=== PATIENT | male | born 1945 | race Caucasian/White ===

== ENCOUNTER 2020-04-18 06:18 | Emergency (ER) | payer MEDICARE, SELFPAY ==
--- NOTE | ~2020-04-18 | CT_ITS ---
EXAMINATION: CT abdomen pelvis w con DATE: 04/18/2020 07:01 INDICATION: Right upper quadrant abdominal pain and fever. TECHNIQUE: Computed tomography (CT) of the abdomen and pelvis was performed with 100 mL Omnipaque-350 intravenous contrast. Automated exposure control and iterative reconstruction technique were employe d. The dose-length product was 1106.54 mGy-cm. COMPARISON: None FINDINGS: Emphysema and mild atelectasis at the bilateral lung bases. Heart size is normal. Atherosclerotic cor onary artery calcifications. No pericardial or pleural effusion. Gallbladder is mildly dilated with m ild wall thickening and pericholecystic inflammatory stranding consistent with acute cholecystitis. S uggestion of possible obstructing gallstone at the proximal cystic duct. Liver, spleen, pancreas, damari ateral adrenal glands are normal. There are bilateral small low-attenuation parenchymal and parapelvi c cysts at both kidneys. There is a larger 2.2 cm high attenuation lesion in the upper pole of the ri ght kidney which could represent either a proteinaceous/hemorrhagic cyst or solid enhancing neoplasm. There is prominent diverticulosis along the descending and sigmoid colon without adjacent inflammato ry change to suggest diverticulitis. Small bowel and appendix are normal. Partially decompressed blad misti is unremarkable. Prostatic calcifications. No free intraperitoneal gas or fluid. No pathologicall y enlarged abdominal or pelvic lymphadenopathy. Severe lumbar spondylosis. IMPRESSION: 1. Acute cholecystitis with possible obstructing gallstone at the cystic duct. 2. 2.2 cm indeterminate lesion at the upper pole of the right kidney which could represent either a p roteinaceous/hemorrhagic cyst or solid enhancing neoplasm. Recommend further evaluation with follow-u p pre and postcontrast MRI or CT. Reviewed, dictated and finalized at location A. IMPRESSION: 1. Acute cholecystitis with possible obstructing gallstone at the cystic duct. 2. 2.2 cm indeterminate lesion at the upper pole of the right kidney which coul d represent either a proteinaceous/hemorrhagic cyst or solid enhancing neoplasm . Recommend further evaluation with follow-up pre and postcontrast MRI or CT.
[2020-04-18 06:22] VITALS: BP 116/61; PULSE 100; RESP 19; TEMP 37.1; O2SAT 100
--- NOTE | 2020-04-18 06:32 | ED.ABDPAIN ---
HPI - Abdominal Pain General Chief Complaint: Abdominal Pain <Garret Rudolph MD - Last Filed: 04/19/20 00:58> Stated Complaint: abdominal pain and bloating <Garret Rudolph MD - Last Filed: 04/19/20 00:58> Time Seen by Provider: 04/18/20 06:24 <Garret Rudolph MD - Last Filed: 04/19/20 00:58> History of Present Illness HPI narrative: Abdominal pain since Thursday. Started in he RLQ during a walk. Later that day spread throughout the abdomen. Yesterday the pain moved to the RUQ and he began having fevers up to 101. This was also associated with loss of appetite and bloating. He reports that he has not had a bowel movement since Thursday. He tried tea and lemon-aid without relief. <Garret Rudolph MD - Last Filed: 04/19/20 00:58> Related Data Home Medications: Home Medications Medication Instructions Recorded Confirmed amlodipine 04/18/20 aspirin [Aspir-81] 04/18/20 hydrochlorothiazide 04/18/20 losartan 04/18/20 metoprolol tartrate 04/18/20 simvastatin mg 04/18/20 <Garret Rudolph MD - Last Filed: 04/19/20 00:58> Allergies/Adverse Reactions: Allergies Allergy/AdvReac Type Severity Reaction Status Date / Time Sulfa (Sulfonamide Allergy Intermediate Nausea and Verified 04/18/20 06:27 Antibiotics) Vomiting codeine AdvReac Intermediate Nausea and Verified 04/18/20 06:27 Vomiting MEPERIDINE HCL Allergy Intermediate Nausea and Uncoded 04/18/20 06:27 Vomiting <Garret Rudolph MD - Last Filed: 04/19/20 00:58> Review of Systems Review of Systems: All systems reviewed & are unremarkable except as noted in HPI and below <Garret Rudolph MD - Last Filed: 04/19/20 00:58> Constitutional: Constitutional: Reports fever(s) and Denies weakness <Garret Rudolph MD - Last Filed: 04/19/20 00:58> Cardiovascular: Cardiovascular: Denies chest pain <Garret Rudolph MD - Last Filed: 04/19/20 00:58> Respiratory: Respiratory: Denies dyspnea <Garret Rudolph MD - Last Filed: 04/19/20 00:58> Gastrointestinal: Gastrointestinal: Reports abdominal pain, Reports constipation, Denies diarrhea, Reports nausea and Denies vomiting <Garret Rudolph MD - Last Filed: 04/19/20 00:58> Genitourinary: Genitourinary: Denies hematuria, Denies oliguria and Denies dysuria <Garret Rudolph MD - Last Filed: 04/19/20 00:58> Musculoskeletal: Musculoskeletal: Denies back pain <Garret Rudolph MD - Last Filed: 04/19/20 00:58> Neurologic: Denies numbness and Denies weakness <Garret Rudolph MD - Last Filed: 04/19/20 00:58> PMF Past Medical History Medical History: Medical History (Updated 04/19/20 @ 00:00 by Eulogio Mahmood) HTN (hypertension) Hyperlipidemia <Garret Rudolph MD - Last Filed: 04/19/20 00:58> Surgical History Surgical History: Surgical History (Updated 04/18/20 @ 16:04 by Tameka Alves) History of knee surgery 4x bilateral History of uvulopalatopharyngoplasty <Garret Rudolph MD - Last Filed: 04/19/20 00:58> Family History Family History: Family History (Updated 04/18/20 @ 16:04 by Tameka Alves) Unknown Heart disease Cancer <Garret Rudolph MD - Last Filed: 04/19/20 00:58> Social History Social History: Social History (Updated 04/18/20 @ 16:04 by Tmaeka Alves) Smoking packs per day: 1 Smoking cigarettes per day: 20.0 Years smoked: 20 Smoking pack-years: 20.00 Smoking status: Former smoker Alcohol intake: current Living arrangements: with family Occupation/Education: occupation Additional occupation/education comments: sales Gender identity (if verbalized by the patient): Male <Garret Rudolph MD - Last Filed: 04/19/20 00:58> Exam Const: General: healthy appearing, no acute distress and alert <Garret Rudolph MD - Last Filed: 04/19/20 00:58> Nutritional Appearance: obese <Garret Rudolph MD - Last Filed
[2020-04-18 06:34] LABS: Basophils Absolute Auto 0.1 K/mm3 (0.0-0.1); Basophils Percent Auto 0.3 % (0.2-1.2); Eosinophils Percent Auto 0.2 % (0-4.4); Hematocrit 46.8 % (42.0-52.0); Hemoglobin 15.4 g/dL (14.0-18.0); Immature Granulocyte Percent A 0.6 % (0-0.5); Lymphocytes Absolute Auto 1.07 K/mm3 (0.9-3.2); Mean Corpuscular HGB Conc 32.9 g/dl (32-36); Mean Corpuscular Hemoglobin 30.9 pg (26-34); Mean Corpuscular Volume 93.8 fl (80-100); Mean Platelet Volume 8.9 fl (7.4-10.4); Monocytes Percent Auto 11.1 % (2.6-8.5); Neutrophils Absolute Auto 14.7 K/mm3 (1.3-6.7); Neutrophils Percent Auto 81.8 % (45.5-73.1); Platelet Count Result 232 k/mm3 (150-375); Red Blood Count 4.99 M/mm3 (4.6-6.20); Red Cell Distribution Width 13.2 % (11.5-14.5); White Blood Count 17.9 K/mm3 (4.5-10.0)
[2020-04-18 06:44] LABS: Alanine Aminotransferase 22 U/L (4-50); Alkaline Phosphatase 66 U/L (38-126); Anion Gap 9 mmol/L (8-16); Aspartate Amino Transferase 23 U/L (17-59); Bilirubin,Total 1.3 mg/dL (0.2-1.3); Blood Urea Nitrogen 14 mg/dL (9-20); Calcium 8.8 mg/dL (8.4-10.2); Carbon Dioxide 27 mmol/L (22-30); Chloride 98 mmol/L (98-107); Estimated CRCL calculation 79 ml/min; Estimated Glomerular Filt Rate > 60; Glucose 120 mg/dL (75-110); Lipase 25 U/L (23-300); Potassium 3.5 mmol/L (3.4-5.0); Sodium 134 mmol/L (137-145)
[2020-04-18 06:53] LABS: Add Urine Microscopic? YES; Appearance Urine Clear (Clear); Bacteria Urine Trace /hpf; Bilirubin Urine Negative (Negative); Blood Urine 1+ (Negative); Color Urine Yellow (Yellow); Glucose Urine UA Negative (Negative); Ketones Urine Negative (Negative); Leukocyte Esterase Ur Negative LEU/UL (Negative); Mucus Urine Few /lpf; Nitrate Urine Negative (Negative); Protein Urine 1+ mg/dL (Negative); RBC Urine 0-2 /hpf (0-2); Specific Grav Ur 1.015 (1.001-1.035); Squamous Epithelial Cell Urine Occasional /hpf (Few); Urobilinogen Urine Negative mg/dL (<2.0); WBC Urine 0-3 /hpf
--- NOTE | 2020-04-18 07:11 | PC.NURSE ---
Assumed care of pt, pt is alert and upright on stretcher - returning from CT scan, at bedside, discussed POC. No requests at this time.
[2020-04-18 08:05] VITALS: BP 122/69; PULSE 88; RESP 18; O2SAT 96
[2020-04-18] MEDS: CIPROFLOXACIN 500 MG TAB PO (08:27)
[2020-04-18 08:32] VITALS: BP 122/69; PULSE 88; RESP 18; O2SAT 96
== END 2020-04-18 08:33 | disposition home or self-care (01) ==
PROVIDERS: Emergency Medicine; Emergency Provider Emergency Medicine; PCP Internal Medicine
DX: K81.9 Cholecystitis, unspecified (principal); I10 Essential (primary) hypertension; E78.5 Hyperlipidemia, unspecified
CPT/HCPCS: 36415; 74177; 80053; 81001; 83690; 85025; 99284; A9270; Q9967

== ENCOUNTER 2020-05-03 07:37 | Outpatient (CLI) | payer MEDICARE, SELFPAY ==
--- NOTE | ~2020-05-03 | US_ITS ---
EXAMINATION: US abdomen limited DATE: 05/03/2020 08:24 INDICATION: Right upper quadrant abdominal pain. Acute cholecystitis. TECHNIQUE: Multiple grayscale and Doppler ultrasound images of the abdomen were obtained. COMPARISON: CT abdomen and pelvis 04/18/2020 FINDINGS: The visualized portions of the head, body, and tail of the pancreas are normal. The liver i s normal without focal lesion. The gallbladder is normal in size and contains gallstones. Gallbladder wall thickening is noted. There was no sonographic Arthur sign. The common duct is normal and measur es 4 mm. IMPRESSION: 1. Cholelithiasis. Gallbladder wall thickening is likely from acute or chronic cholecystitis. Reviewed, dictated and finalized at location B.
--- NOTE | ~2020-05-03 | NM_ITS ---
EXAMINATION: NM hepatobiliary wo pharm DATE: 05/03/2020 12:06 INDICATION: Acute cholecystitis. Abnormal findings on diagnostic imaging of liver and bile ducts. COMPARISON: CT abdomen and pelvis 04/18/2020 TECHNIQUE: 5.2 mCi Tc-99m mebrofenin (Choletec) was administered intravenously. Scintigraphic images of the abdomen were obtained for one hour. Delayed images were obtained at 4 hours. FINDINGS: There is normal clearance of radiotracer from the blood pool. There is homogeneous tracer u ptake by the liver. Activity progresses to the bowel. There is no activity in the gallbladder at 4 h ours. IMPRESSION: 1. Acute cholecystitis. Reviewed, dictated and finalized at location B. IMPRESSION: 1. Acute cholecystitis.
== END 2020-05-03 07:38 | disposition home or self-care (01) ==
PROVIDERS: Visit Provider Surgery
DX: R93.2 Abnormal findings on diagnostic imaging of liver and biliary tract (principal); K81.0 Acute cholecystitis; K80.20 Calculus of gallbladder without cholecystitis without obstruction
CPT/HCPCS: 76705; 78226; A9537

== ENCOUNTER 2020-05-04 08:52 | Outpatient (CLI) | payer MEDICARE, SELFPAY ==
--- NOTE | ~2020-05-04 | MR_ITS ---
EXAMINATION: MR abdomen wo/w con DATE: 05/04/2020 10:10 INDICATION: Right kidney mass. TECHNIQUE: Magnetic resonance imaging (MRI) of the abdomen was performed without and with 18 mL Multi Samara intravenous contrast. Sequences included coronal T2-weighted FS FSE, coronal and axial FIESTA F S, coronal LAVA-flex, axial LAVA, axial T2-weighted FSE, axial T1-weighted dual-echo FSPGR, axial STI R FSE, and axial DWI. Postcontrast sequences included coronal LAVA-flex and a time course of axial LA VA. COMPARISON: CT abdomen and pelvis 04/18/2020, hepatobiliary scintigraphy 05/03/2020 FINDINGS: The liver, spleen, pancreas, and adrenal glands are normal. There are gallstones in the gallbladder, which is normal in size. There is a stone in the cystic duct. Gallbladder wall thickening is noted, c onsistent with acute cholecystitis. There are hemorrhagic cysts in the kidneys measuring up to 2.5 cm on the right. There are simple cysts in left kidney measuring up to 1.7 cm. There are no dilated loo ps of bowel. There are no pathologically enlarged lymph nodes. There is no free intraperitoneal fluid . IMPRESSION: 1. Benign cysts in the kidneys. 2. Acute cholecystitis. Reviewed, dictated and finalized at location B.
[2020-05-04 09:29] LABS: Estimated Glomerular Filt Rate > 60
== END 2020-05-04 08:53 | disposition home or self-care (01) ==
PROVIDERS: Visit Provider Physician Assistant
DX: N28.1 Cyst of kidney, acquired (principal); K81.0 Acute cholecystitis
CPT/HCPCS: 74183; A9577

== ENCOUNTER 2020-05-06 07:22 | Inpatient (IN) | payer MEDICARE, SELFPAY ==
[2020-05-06] VITALS (11 sets, daily range): BP systolic 109–145; BP diastolic 62–71; PULSE 88–109; RESP 14–23; TEMP 36.4–38.1; O2SAT 95–99; BMI 30.2
--- NOTE | ~2020-05-06 | CT_ITS ---
EXAMINATION: CT abdomen pelvis w con DATE: 05/06/2020 09:29 INDICATION: Cholecystitis. Fever. TECHNIQUE: Computed tomography (CT) of the abdomen and pelvis was performed with 100 mL Omnipaque-350 intravenous contrast. Automated exposure control and iterative reconstruction technique were employe d. The dose-length product was 996.05 mGy-cm. COMPARISON: Abdomen MRI dated 05/04/2020 FINDINGS: Mild emphysema and unchanged pattern of linear discoid atelectasis/scarring at the bilateral mid to l ower lungs. Heart size is normal. No pericardial or pleural effusion. Atherosclerotic coronary artery calcification. Again seen is mild edematous wall thickening of the gallbladder with multiple gallsto mansi evident on the prior MRI consistent with acute cholecystitis. Liver, spleen, pancreas and bilater al adrenal glands are normal. Again seen are bilateral renal cysts including a 2.5 cm hyperdense hemo rrhagic cyst at the upper pole of the right kidney which is without contrast enhancement on prior MRI . There is extensive diverticulosis throughout the colon without adjacent inflammatory change to sugg est diverticulitis. Small bowel is normal. Normal tiny appendix. Mild diffuse bladder wall thickening which may be related to chronic outlet obstruction from the enlarged prostate. No free intraperitone al gas or fluid. No pathologically enlarged abdominal or pelvic lymphadenopathy. Mild lumbar dextrocu rvature with severe spondylosis. IMPRESSION: 1. Acute cholecystitis. 2. Extensive diverticulosis. 3. Mild bladder wall thickening which may be related to chronic outlet obstruction from the enlarged prostate. Reviewed, dictated and finalized at location A. IMPRESSION: 1. Acute cholecystitis. 2. Extensive diverticulosis. 3. Mild bladder wall thickening which may be related to chronic outlet obstruct ion from the enlarged prostate.
--- NOTE | ~2020-05-06 | XR_ITS ---
EXAMINATION: XR chest 2V DATE: 05/06/2020 08:04 INDICATION: Fever. Body chills. TECHNIQUE: frontal and lateral views of the chest were obtained. COMPARISON: CT abdomen and pelvis dated 04/18/2020. FINDINGS: Predominantly linear opacities in the left mid to lower and right lower lung zones. Increased lucency and architectural distortion at the upper lung zones consistent with emphysema. No pleural effusion or pneumothorax. The cardiomediastinal silhouette is normal. Atherosclerotic aorta. Mild thoracic dex trocurvature with mild thoracic and moderate lumbar spondylosis. IMPRESSION: 1. Mild opacities at the left mid to lower and right lower lung zones which appears similar in locati on and configuration to earlier discoid atelectasis/scarring seen on prior CT. Reviewed, dictated and finalized at location A. IMPRESSION: 1. Mild opacities at the left mid to lower and right lower lung zones which xavier ears similar in location and configuration to earlier discoid atelectasis/scarr ing seen on prior CT.
--- NOTE | 2020-05-06 07:32 | ED.FEVER ---
HPI - Fever General Chief Complaint: Fever Stated Complaint: fever/UTI? Time Seen by Provider: 05/06/20 07:31 Source: patient Mode of arrival: ambulatory Limitations: no limitations History of Present Illness HPI Narrative: Patient is a 75-year-old male with a history of hypertension who presents for evaluation of recurrent fever. Patient reports fever of maximum temperature 103 Fahrenheit over the past 24 hours. Patient states he has myalgias, does not feel well generally, but denies any headache pain, chest pain, cough, or abdominal pain. Patient was seen here approximately 2 weeks ago and diagnosed with acute cholecystitis, completed a at home course of oral ciprofloxacin and followed up with Dr. Lowe in office, is currently in work-up to get HIDA scan, additional imaging for this. Patient is denying any abdominal pain, nausea or vomiting. No diarrhea. He does report some dysuria. Patient finished his course of ciprofloxacin 4 days ago. He had COVID testing yesterday which was negative. No recent sick contacts. Related Data Home Medications Medication Instructions Recorded Confirmed amlodipine 04/18/20 aspirin [Aspir-81] 04/18/20 hydrochlorothiazide 04/18/20 losartan 04/18/20 metoprolol tartrate 04/18/20 simvastatin mg 04/18/20 Allergies Allergy/AdvReac Type Severity Reaction Status Date / Time Sulfa (Sulfonamide Allergy Intermediate Nausea and Verified 05/06/20 09:00 Antibiotics) Vomiting codeine AdvReac Intermediate Nausea and Verified 05/06/20 09:00 Vomiting MEPERIDINE HCL Allergy Intermediate Nausea and Uncoded 04/18/20 06:27 Vomiting Review of Systems Review of Systems: Narrative: CONSTITUTIONAL: Reports fever and chills EYES: Denies visual changes, redness, or discharge. ENT: Reports rhinorrhea, congestion, denies sore throat CARDIOVASCULAR: Denies chest pain, palpitations, or edema. RESPIRATORY: Denies cough or dyspnea. GASTROINTESTINAL: Denies abdominal pain, nausea, vomiting, or diarrhea. GENITOURINARY: Reports dysuria, denies hematuria, denies flank pain SKIN: Denies rash or itching. MUSCULOSKELETAL: Denies back pain, joint pain, reports myalgias NEUROLOGIC: Denies headache, numbness, or weakness. [facility] Past Medical History Medical History HTN (hypertension) Hyperlipidemia Surgical History Surgical History History of knee surgery 4x bilateral History of uvulopalatopharyngoplasty Social History Social History Smoking packs per day: 1 Smoking cigarettes per day: 20.0 Years smoked: 20 Smoking pack-years: 20.00 Smoking status: Former smoker Alcohol intake: current Additional occupation/education comments: sales Gender identity (if verbalized by the patient): Male Exam Narrative: Exam Narrative: GENERAL: Awake, alert, conversant HEAD: Normocephalic, atraumatic. EYES: PERRLA and EOMI. ENT: Nares clear, no rhinorrhea or epistaxis. Mucous membranes moist. NECK: Supple. CHEST: No respiratory distress, breathing even and non labored HEART: Tachycardic rate, sinus rhythm ABDOMEN:Non distended, non tender, no focal right upper quadrant tenderness or epigastric tenderness EXTREMITIES: Normal range of motion. No edema. SKIN: Warm, dry, no rash. NEURO:No focal deficits. Alert and oriented x3 Course Vital Signs Vital signs: Vital Signs Temperature 37.7 C H 05/06/20 07:25 Pulse Rate 105 H 05/06/20 07:25 Respiratory Rate 16 05/06/20 07:25 Blood Pressure 116/67 05/06/20 07:25 Pulse Oximetry 96 05/06/20 07:25 Temperature 37.2 C 05/06/20 10:06 Pulse Rate 92 05/06/20 08:29 Respiratory Rate 21 H 05/06/20 08:29 Blood Pressure 121/68 05/06/20 08:29 Pulse Oximetry 95 05/06/20 08:29 MDM - Fever MDM Narrative Medical decision making narrative: Patient prese
[2020-05-06 07:55] LABS: Hematocrit 42.3 % (42.0-52.0); Hemoglobin 14.1 g/dL (14.0-18.0); Mean Corpuscular HGB Conc 33.3 g/dl (32-36); Mean Corpuscular Hemoglobin 31.1 pg (26-34); Mean Corpuscular Volume 93.2 fl (80-100); Mean Platelet Volume 8.9 fl (7.4-10.4); Platelet Count Result 218 k/mm3 (150-375); Red Blood Count 4.54 M/mm3 (4.6-6.20); Red Cell Distribution Width 13.4 % (11.5-14.5); White Blood Count 15.9 K/mm3 (4.5-10.0)
[2020-05-06] MEDS: ACETAMINOPHEN 500 MG TABLET 1000 MG PO (08:11)
[2020-05-06 08:15] LABS: Band Neutrophils Percent 1 % (0-6); Lymphocytes Absolute Manual 0.63 K/mm3 (1.1-4.5); Monocytes Absolute Manual 0.47 K/mm3 (0.1-0.90); Monocytes Percent Manual 3 % (3-9); Neutrophils Absolute Manual 14.78 K/mm3 (1.3-6.7); Neutrophils Percent Manual 92 % (46-73); Platelet Estimate Adequate (Adequate); Total Cells Counted 100
[2020-05-06] MEDS: SODIUM CHLORIDE 0.9% IV 2,800 ML/1,000 ML BAG 999 ML IV CONT ×3 (08:15→10:06)
[2020-05-06 08:23] LABS: Lactic Acid Reflex 1.2 mmol/L (0.7-2.1)
[2020-05-06 08:37] LABS: Alanine Aminotransferase 30 U/L (4-50); Albumin Level 3.6 g/dL (3.5-5.1); Alkaline Phosphatase 81 U/L (38-126); Anion Gap 8 mmol/L (8-16); Aspartate Amino Transferase 23 U/L (17-59); Bilirubin,Total 0.9 mg/dL (0.2-1.3); Blood Urea Nitrogen 19 mg/dL (9-20); CRP 12.2 mg/dL (<1.0); Calcium 8.5 mg/dL (8.4-10.2); Carbon Dioxide 26 mmol/L (22-30); Chloride 100 mmol/L (98-107); Estimated CRCL calculation 81 ml/min; Estimated Glomerular Filt Rate > 60; Glucose 157 mg/dL (75-110); Lipase 34 U/L (23-300); Potassium 3.8 mmol/L (3.4-5.0); Sodium 134 mmol/L (137-145)
--- NOTE | 2020-05-06 09:05 | PC.NURSE ---
Patient unable to provide urine sample, says I should be able to soon. Currently refusing straight cath. IV fluids actively running.
[2020-05-06 10:01] LABS: Add Urine Microscopic? YES; Appearance Urine Cloudy (Clear); Bacteria Urine 4+ /hpf; Bilirubin Urine Negative (Negative); Blood Urine Negative (Negative); Color Urine Yellow (Yellow); Glucose Urine UA Negative (Negative); Ketones Urine Negative (Negative); Leukocyte Esterase Ur 2+ LEU/UL (Negative); Mucus Urine Heavy /lpf; Nitrate Urine Positive (Negative); Protein Urine 1+ mg/dL (Negative); Specific Grav Ur 1.016 (1.001-1.035); Urobilinogen Urine Negative mg/dL (<2.0); WBC Urine 51-75 /hpf
[2020-05-06] MEDS: ONDANSETRON INJ 4 MG/2 ML VIAL IV PUSH ×3 (10:25→18:45)
--- NOTE | 2020-05-06 12:33 | PC.NURSE ---
This patient, Baltazar Cox, was admitted to 3 [facility] Surg Room 302-01. Patient/family oriented to hospital policies and general routines including ID bracelet, bed and alarms, visiting hours, pain management, procedures, bathroom and other care routines, personal items, smoking policy, room service/diet, and visiting hours. Valuables list has been completed. Information on how to activate the Rapid Response Team has been discussed. Patient/Family are encouraged to report perceived risks to care and to ask questions if they do not understand what they are told or what they should do.
--- NOTE | 2020-05-06 16:14 | PM.IMHP ---
H&P: HPI History of Present Illness Date/Time: 05/06/20 16:14 Chief complaint: Sepsis, UTI, Acute cholecystitis Narrative: Baltazar Cox is a 75 year old maleWho has a history of a dysfunctional gallbladder and gallstones. Patient stated that he had a fever about 1 week ago and was on ciprofloxacin. The patient stated that he completed the course. His was concerned because he had a T-max of 104.1?. So she took him to get a COVID test which was found to be negative. The patient had been seen in the emergency room on 04/18/2020 with abdominal pain. Had a fever 101 at that time. He had some bloating and poor appetite. Dr. pa had been notified at that time and the patient was started on Cipro at that time. The patient had a follow-up visit with Dr. pa on 04/24/2020. The patient stated that he was feeling better at that time. Today the patient came in with complaints of fever again. His temperature was 103? today. He was nauseated. Patient was scheduled for a HIDA scan but just did not make it to the scheduled appointment. His COVID test came back negative from yesterday. The patient was found to have UTI. Chest x-ray was read per Radiology as mild pace to the left mid to lower lobe and right lower lung zones which appears to be similar in location and configuration to early discoid atelectasis versus scarring. Abdominal pelvis CT was read as acute cholecystitis. Extensive diverticulosis. Mild bladder wall thickening which may be related to chronic outlet obstruction from the enlarged prostate. Patient was started on Rocephin in the emergency room. He received [address] Veronica was on-call for the surgical team today. The patient was started on IV fluids and given Tylenol and Zofran in the emergency. Date of service 05/06/2020 Review of Systems Review of Systems: All systems reviewed & are unremarkable except as noted in HPI and below Constitutional: Constitutional: Reports as per HPI and Reports no additional constitutional complaints Eyes: Eyes: Reports as per HPI and Reports no additional eye complaints ENT: Reports system reviewed and no additional complaints, except as documented and Reports Normal hearing present Cardiovascular: Cardiovascular: Reports no additional cardiovascular complaints Respiratory: Respiratory: Reports no additional respiratory complaints and Reports no additional respiratory complaints Gastrointestinal: Gastrointestinal: Reports as per HPI and Reports no additional gastrointestinal complaints Musculoskeletal: Musculoskeletal: Reports no additional musculoskeletal complaints Integumentary/Breasts: Skin/Breast: Reports system reviewed and no additional complaints, except as docu and Reports as per HPI Neurologic: Reports system reviewed and no additional complaints, except as documented, Reports as per HPI and Reports Normal hearing present Psychiatric: Psychiatric: Reports no additional psychiatric complaints and Reports as per HPI Endocrine: Endocrine: Reports no additional endocrine complaints Hematologic/Lymphatic: Hematologic/Lymphatic: Reports no additional hematologic/lymphatic complaints Allergic/Immunologic: Allergic/Immunologic: Reports no additional allergic/immunologic complaints [facility] Past Medical History Medical History (Updated 05/06/20 @ 16:28 by Fely Rojas NP) Diverticulosis History of deep vein thrombosis postoperative knee complications had been on anticoagulation for short period time. HTN (hypertension) Hyperlipidemia Obstructive sleep apnea resolved with surgery Surgical History Surgical History (Updated 05/06/20 @ 16:23 by Fely Rojas NP) History of knee surgery 4x bilateral History of uvulopalatopharyngoplasty S/P tonsillectomy and adenoidectomy Family History Family History (Updated 05/06/20 @ 16:24 by Fely Rojas NP) Father Acute myocardial infarction Mother Breast cancer Diverticulitis Social History So
[2020-05-06] MEDS: ACETAMINOPHEN 325 MG TABLET 650 MG PO (22:21)
[2020-05-07 06:00] VITALS: BP 115/49; PULSE 92; RESP 18; TEMP 36.7; O2SAT 97
[2020-05-07 06:41] LABS: Basophils Percent Auto 0.4 % (0.2-1.2); Eosinophils Percent Auto 0.1 % (0-4.4); Hematocrit 41.9 % (42.0-52.0); Hemoglobin 13.7 g/dL (14.0-18.0); Immature Granulocyte Absolute 0.04 K/mm3 (0.00-0.031); Immature Granulocyte Percent A 0.6 % (0-0.5); Lymphocytes Absolute Auto 0.44 K/mm3 (0.9-3.2); Lymphocytes Percent Auto 6.3 % (18.3-44.2); Mean Corpuscular HGB Conc 32.7 g/dl (32-36); Mean Corpuscular Volume 94.8 fl (80-100); Monocytes Absolute Auto 0.6 K/mm3 (0.1-0.6); Neutrophils Absolute Auto 5.8 K/mm3 (1.3-6.7); Neutrophils Percent Auto 83.6 % (45.5-73.1); Platelet Count Result 190 k/mm3 (150-375); Red Blood Count 4.42 M/mm3 (4.6-6.20); Red Cell Distribution Width 13.3 % (11.5-14.5)
[2020-05-07 07:00] LABS: Alanine Aminotransferase 26 U/L (4-50); Albumin Level 3.1 g/dL (3.5-5.1); Alkaline Phosphatase 64 U/L (38-126); Anion Gap 6 mmol/L (8-16); Aspartate Amino Transferase 26 U/L (17-59); Bilirubin,Total 0.6 mg/dL (0.2-1.3); Blood Urea Nitrogen 14 mg/dL (9-20); CRP 6.1 mg/dL (<1.0); Calcium 7.9 mg/dL (8.4-10.2); Carbon Dioxide 30 mmol/L (22-30); Chloride 100 mmol/L (98-107); Estimated CRCL calculation 72 ml/min; Estimated Glomerular Filt Rate > 60; Glucose 109 mg/dL (75-110); Magnesium 2.2 mg/dL (1.6-2.3); Potassium 3.3 mmol/L (3.4-5.0); Sodium 136 mmol/L (137-145)
[2020-05-07] MEDS: KCL 20 MEQ/SW 100 ML 100 ML 50 MEQ IVPB (09:06)
[2020-05-07 14:00] VITALS: BP 143/71; PULSE 92; RESP 20; TEMP 37.6; O2SAT 97
[2020-05-07] MEDS: LACTATED RINGERS 1,000 ML 100 ML IV CONT (14:28)
[2020-05-07] MEDS: SODIUM CHLORIDE 0.9% IV 1,000 ML 999 ML IV CONT (16:08)
[2020-05-07 16:47] VITALS: TEMP 37.4
--- NOTE | 2020-05-07 16:49 | PM.IMPN ---
Progress Note: A&P Assessment and Plan (1) Acute UTI: Code(s): N39.0 - Urinary tract infection, site not specified Status: Acute Assessment and Plan: Urine culture growing E coli. Continue broad spectrum antibiotics with IV Zosyn given his concomitant cholecystitis, while awaiting urine sensitivities. Blood cultures pending. (2) Acute cholecystitis: Code(s): K81.0 - Acute cholecystitis Status: Acute Assessment and Plan: See Dr Lowe's note for details. Patient followed with Dr Lowe in the office recently, outpatient workup with US, HIDA, and PCP ordered MRI which all demonstrate acute cholecystitis. He has no abdominal pain. Appreciate Dr Lowe's recommendations. Noted his plan for probable lap hemal this week. (3) Sepsis: Qualifiers: Sepsis type: sepsis due to unspecified organism Sepsis acute organ dysfunction status: without acute organ dysfunction Qualified Code(s): A41.9 - Sepsis, unspecified organism Code(s): A41.9 - Sepsis, unspecified organism Status: Acute Assessment and Plan: Evident on arrival by fever, leukocytosis, tachycardia. Source appears to be urinary at this point but cholecystitis could be contributing although this is not causing him pain. Monitor vital signs, urine/blood cultures, urine output. (4) Hyperlipidemia: Qualifiers: Hyperlipidemia type: unspecified Qualified Code(s): E78.5 - Hyperlipidemia, unspecified Code(s): E78.5 - Hyperlipidemia, unspecified Status: Chronic Assessment and Plan: Statin therapy was held due to being NPO today. (5) HTN (hypertension): Qualifiers: Hypertension type: essential hypertension Qualified Code(s): I10 - Essential (primary) hypertension Code(s): I10 - Essential (primary) hypertension Status: Chronic Assessment and Plan: His home losartan, HCTZ, norvasc and metoprolol were held today due to BPs on lower end, 115/49 this AM. May need to add these back in as needed if he is allowed a diet. Monitor BP. Subjective Date/time seen: 05/07/20 1230 Interval history: Mr. Cox is a 75yo M admitted for UTI and acute cholecystitis. He is feeling very tired and weak. He was having some dysuria that is now improved today. No hematuria per patient. He was vomiting last night but none today. He is not having abdominal pain. He reports abdominal bloating and feeling gassy . He is seen this afternoon with his at the bedside and all questions answered at this time. Review of Systems Review of Systems: Narrative: Twelve systems were reviewed with pertinent positives and negatives as per HPI. Exam Narrative: Exam Narrative: General: Male resting supine in bed in no acute distress. HEENT: Normocephalic, EOMI, oral mucosa moist. Cardiovascular: Rate and rhythm are regular. Respiratory: Lungs clear to auscultation all arteaga. Non-labored breathing. Abdomen: Protuberant but soft, non-tender, non-distended, bowel sounds present. No RUQ tenderness to palpation. Extremities: Peripheral pulses intact. No edema. Neuro: No focal neurological deficits. Speech is clear. Objective Data Vital Signs Vital Signs: Last Vital Signs Temp 99.4 F 05/07/20 16:47 Pulse 92 05/07/20 14:00 Resp 20 05/07/20 14:00 BP 143/71 H 05/07/20 14:00 Pulse Ox 97 05/07/20 14:00 Intake/Output Intake/Output: Intake & Output 05/04/20 05/05/20 05/06/20 05/07/20 23:59 23:59 23:59 23:59 Intake Total 3340 640 Output Total 425 Balance 3340 215 Meds/Results Medications: Active Medications Generic Name Dose Route Start Last Admin Trade Name Freq PRN Reason Stop Dose Admin Acetaminophen 650 mg 05/06/20 10:31 05/06/
[2020-05-07] MEDS: ONDANSETRON INJ 4 MG/2 ML VIAL 2 MG IV PUSH (16:50)
--- NOTE | 2020-05-07 16:51 | PM.CNGS ---
Assessment and Plan Assessment and plan (1) Acute UTI: Code(s): N39.0 - Urinary tract infection, site not specified Status: Acute Assessment and Plan: I believe this is the cause of the patient's current illness. May have been caused by the prolonged NPO status with all the abdominal testing he had . Agree with IV Zosyn antibiotics. Await sensitivities on the E coli growing in his urine. No prostate tenderness on rectal exam to suggest chronic prostatitis. Continue IV antibiotics. Plan to proceed with laparoscopic cholecystectomy on this admission. (2) Cholelithiasis with acute on chronic cholecystitis with biliary obstruction: Code(s): K80.13 - Calculus of gallbladder with acute and chronic cholecystitis with obstruction Status: Acute Assessment and Plan: I agree patient has cholecystitis and gallstones. Continue IV antibiotics for UTI and probably proceed with laparoscopic cholecystectomy on Thursday. I will go ahead and start him on full liquids for now. I discussed the procedure of laparoscopic cholecystectomy with the patient and his . The risks and benefits were discussed. The usual hospital stay and recovery was discussed. Will see how he does the next 12-24 hours but probably proceed on Thursday. (3) Hypokalemia: Code(s): E87.6 - Hypokalemia Status: Acute Assessment and Plan: Supplement in IV fluids. History of Present Illness Consult details Consult date: 05/07/20 Reason for consult: other (Fever) Narrative: patient is a 75-year-old man whom I know from his office visit of 13 days ago, April 24, 2020. The patient had been in the emergency room on April 18. My conversation with the emergency room physician as well as the documentation from the emergency room made me think that on his office visit this would be a pretty for straightforward case of cholecystitis and a patient that would need his gallbladder removed. However, when I started talking to the patient about his abdominal pain, he minimized and in fact denied any abdominal pain but just told me had a little bloating for a day and than that went away. He came to the emergency room because he was having fever and his made him go. He fell fine and had no abdominal tenderness when I saw him in the office. With the discordance between the emergency room visit and his history, I ordered HIDA scan and an ultrasound. Both the HIDA scan and the ultrasound were done on May 03. Both were quite consistent with cholecystitis. On the ultrasound there was gallbladder wall thickening and the gallbladder contained multiple stones. There was no sonographic Arthur sign and the common bile duct was normal at 4 mm. The HIDA scan showed nonvisualization of the gallbladder consistent with acute cholecystitis. His primary care provider also ordered an MRI to evaluate his kidney mass and this was done the following day 05/04/2020. Fortunately the kidney mass was a benign hemorrhagic cyst. However the MRI also showed acute cholecystitis. The patient was due to see me in the office later this week but started having fevers again May 05. He finished up is ciprofloxacin that he started on after his ER visit of April 18. The Cipro was finished on ThursdayMay 02. Due to the fevers the patient had repeat COVID testing on 05/05 and this was negative. He was having dysuria and came to the emergency room where he was febrile [place] [id number]. His urinalysis showed 4+ bacteria and 51-75 white cells, 11-20 RBCs. The patient reports to me that he went approximately 20 straight hours of NPO to get the testing he had obtained 05/03 and 05/04. He has had urinary tract infections in the past and when he goes without drinking water for a prolonged period of time he tells me he will guarantee a urinary tract infection is coming. Urine culture from the emergency room yesterday has already g
[2020-05-07] MEDS: KCL 40 MEQ/0.45% NS 1,000 ML 125 ML IV CONT (17:34)
[2020-05-07] MEDS: ENOXAPARIN 30 MG/0.3 ML SYRINGE SUB-Q (20:54)
[2020-05-07 22:00] VITALS: BP 146/73; PULSE 97; RESP 16; TEMP 37.1; O2SAT 94
[2020-05-08] VITALS (16 sets, daily range): BP systolic 135–158; BP diastolic 70–95; PULSE 67–99; RESP 14–19; TEMP 35.9–37.1; O2SAT 91–99
[2020-05-08] MEDS: KCL 40 MEQ/0.45% NS 1,000 ML 125 ML IV CONT (03:25)
[2020-05-08 06:53] LABS: Hematocrit 39.2 % (42.0-52.0); Hemoglobin 12.9 g/dL (14.0-18.0); Mean Corpuscular HGB Conc 32.9 g/dl (32-36); Mean Corpuscular Hemoglobin 30.8 pg (26-34); Mean Corpuscular Volume 93.6 fl (80-100); Mean Platelet Volume 8.9 fl (7.4-10.4); Platelet Count Result 183 k/mm3 (150-375); Red Blood Count 4.19 M/mm3 (4.6-6.20); Red Cell Distribution Width 13.1 % (11.5-14.5)
[2020-05-08 07:09] LABS: Alanine Aminotransferase 25 U/L (4-50); Albumin Level 2.9 g/dL (3.5-5.1); Alkaline Phosphatase 56 U/L (38-126); Anion Gap 4 mmol/L (8-16); Aspartate Amino Transferase 27 U/L (17-59); Bilirubin,Total 0.6 mg/dL (0.2-1.3); Blood Urea Nitrogen 14 mg/dL (9-20); Calcium 7.5 mg/dL (8.4-10.2); Carbon Dioxide 27 mmol/L (22-30); Chloride 101 mmol/L (98-107); Estimated CRCL calculation 81 ml/min; Estimated Glomerular Filt Rate > 60; Glucose 116 mg/dL (75-110); Potassium 3.7 mmol/L (3.4-5.0); Sodium 132 mmol/L (137-145)
[2020-05-08 07:10] LABS: Magnesium 2.1 mg/dL (1.6-2.3)
--- NOTE | 2020-05-08 10:46 | ECG_ITS ---
Measurements Intervals [place] Rate: 81 P: 37 WV: 196 QRS: 33 QRSD: 97 T: 19 QT: 393 QTc: 459 Interpretive Statements SINUS RHYTHM NORMAL ECG Electronically Signed On 05-08-2020 11:13:58 CDT by Eyal Ramon D.O.
--- NOTE | 2020-05-08 10:49 | PM.PNGS ---
Progress Note: A&P Assessment and Plan (1) Acute UTI: Code(s): N39.0 - Urinary tract infection, site not specified Status: Acute Assessment and Plan: much improved. Patient feels good today. No further dysuria. No fever. Tolerated liquids well. Discussed with patient. (2) Cholelithiasis with acute on chronic cholecystitis with biliary obstruction: Code(s): K80.13 - Calculus of gallbladder with acute and chronic cholecystitis with obstruction Status: Acute Assessment and Plan: Patient has improved significantly from yesterday. We will go ahead with laparoscopic cholecystectomy today. The procedure the risks the benefits have been discussed. All questions were answered. He understands and agrees to go ahead. (3) Hypokalemia: Code(s): E87.6 - Hypokalemia Status: Acute Assessment and Plan: Improved. Potassium 3.7 today. Subjective Subjective Date/Time Seen: 05/08/20 10:49 Patient reports: no new complaints, feels better, tolerating liquids well and afebrile Review of Systems Review of Systems: All systems reviewed & are unremarkable except as noted in HPI and below Constitutional: Constitutional: Denies headache(s) Cardiovascular: Cardiovascular: Denies chest pain and Denies dyspnea Respiratory: Respiratory: Denies cough and Denies dyspnea Gastrointestinal: Gastrointestinal: Reports as per HPI Neurologic: Denies confusion and Denies headache(s) Exam Const: General: comfortable and no acute distress; No confusion Orientation/consciousness: patient oriented x3 and No confusion GI: GI Palp: Yes Soft to palpation, Yes Tenderness to palpation present (GI), No Guarding due to palpation present (GI) and No Rebound tenderness present Auscultation: normal bowel sounds Neuro: General: patient oriented x3, no focal motor deficits and No confusion Extrem: General: no calf tenderness and no edema Psych: Affect: normal affect Insight: Good insight present (Psych) Judgement: Good judgement present (Psych) Objective Data Vital Signs Vital Signs: Vital Signs - 24 hr 05/07/20 14:00 05/07/20 16:47 05/07/20 22:00 Temperature 37.6 C 37.4 C 37.1 C Pulse Rate 92 97 Respiratory Rate 20 16 Blood Pressure 143/71 H 146/73 H Pulse Oximetry 97 94 05/08/20 05:51 05/08/20 08:46 Temperature 37.0 C 37.1 C Pulse Rate 87 72 Respiratory Rate 18 18 Blood Pressure 148/81 H 138/76 Pulse Oximetry 96 98 Intake/Output Intake/Output: Intake & Output 05/05/20 05/06/20 05/07/20 05/08/20 23:59 23:59 23:59 23:59 Intake Total 3340 1360 1440 Output Total 900 900 Balance 3340 460 540 Meds/Results Medications: Active Medications Generic Name Dose Route Start Last Admin Trade Name Freq PRN Reason Stop Dose Admin Acetaminophen 650 mg 05/06/20 10:31 05/06/20 22:21 Tylenol Tablet PO 650 mg Q4H PRN Administration Mild Pain (1-3) or Fever Chlorhexidine Gluconate 1 applic 05/08/20 10:46 Hibiclens TOPICAL 05/08/20 10:47 ONCE ONE Enoxaparin Sodium 30 mg 05/07/20 21:00 05/07/20 20:54 Lovenox SUB-Q 30 mg Q12HR REG Administration Piperacillin/Tazobactam/Dextrose 3.375 gm in 50 mls @ 100 mls/hr 05/06/20 18:00 05/08/20 04:59 Zosyn 3.375 Gm/D5w 50ml Pm IVPB 100 mls/hr Q6HR REG Administration Potassium Chloride/Sodium Chloride 1,000 mls @ 125 mls/hr 05/07/20 15:30 05/08/20 03:25 Kcl 40 Meq/0.45% Ns IV CONT 125 mls/hr .Q8H REG Administration Lactated Ringer's 1,000 mls @ 30 mls/hr 05/08/20 08:50 Lr - Lactated Ringers Iv IV CONT .Q24H REG Losartan Potassium 100 mg 05/08/20 09:05 Cozaar PO DAILY REG Metoprolol Tartrate 25 mg 05/08/20 21:00 Lopressor PO Q12HR REG Morphine Sulfate 2 mg 05/06/20 10:31 Morphine Sulfate Inj IV PUSH Q2H PRN Pain Rated 7-10 Ondansetron HCl 2 mg 05/07/20 12:20 05/07/20 16:50 Zofran Inj IV PUSH 2 mg Q4H PRN A
--- NOTE | 2020-05-08 11:16 | PC.NURSE ---
Patient did not receive 0900 lovenox. Patient going to surgery at 1500.
[2020-05-08] MEDS: LOSARTAN POTASSIUM 100 MG TABLET PO (11:23)
[2020-05-08] MEDS: CHLORHEXIDINE GLUCONATE 4% SOL 120 ML BTL 1 APPLIC TOPICAL (11:24)
[2020-05-08] MEDS: SCOPOLAMINE 1.5 MG PATCH TRANSDERM (12:51)
--- NOTE | 2020-05-08 12:59 | PM.IMPN ---
Progress Note: A&P Assessment and Plan (1) Acute UTI: Code(s): N39.0 - Urinary tract infection, site not specified Status: Acute Assessment and Plan: -----Urine culture growing E coli which is sensitive to his Zosyn he is on currently for acute cholecystitis. Continue with that and okay do deescalate antibiotics when surgery is okay with this. (2) Acute cholecystitis: Code(s): K81.0 - Acute cholecystitis Status: Acute Assessment and Plan: -----this has been an ongoing issue. Plan for cholecystectomy today. Patient is usually slow to wake up from anesthesia and had a lot of nausea. Scopolamine ordered. (3) Sepsis: Qualifiers: Sepsis acute organ dysfunction status: without acute organ dysfunction Sepsis type: sepsis due to unspecified organism Qualified Code(s): A41.9 - Sepsis, unspecified organism Code(s): A41.9 - Sepsis, unspecified organism Status: Acute Assessment and Plan: ------Evident on arrival by fever, leukocytosis, tachycardia. Source appears to be urinary at this point but cholecystitis could be contributing although this is not causing him pain. Patient's last fever was 05/06/20. (4) Hyperlipidemia: Qualifiers: Hyperlipidemia type: unspecified Qualified Code(s): E78.5 - Hyperlipidemia, unspecified Code(s): E78.5 - Hyperlipidemia, unspecified Status: Chronic Assessment and Plan: -----Will continue statin therapy at discharge. (5) HTN (hypertension): Qualifiers: Hypertension type: essential hypertension Qualified Code(s): I10 - Essential (primary) hypertension Code(s): I10 - Essential (primary) hypertension Status: Chronic Assessment and Plan: -----Last blood pressure 138/76. I have continued his losartan and metoprolol. He has some concerns about his home medications and is going to be follow up with his pcp. He says he occasionally runs low. Will continue to hold norvasc and hctz until we see how his blood pressure runs. Time Spent With Patient Time with patient: 25 - 35 minutes Subjective Date/time seen: 05/08/20 12:59 Interval history: Pt is a a 75-year-old male here for acute coli and UTI. Patient was seen today with at bedside. We had a long discussion about the plan of care. The patient's states that he is slow to recover from anesthesia and he has a lot of nausea during. We talked about is compelling patch and the risk of confusion but they understand and want to try it. Patient states he has not been eating much and has been throwing arrhythmia but has no abdominal pain. He no longer has hematuria or dysuria. No chest pain or shortness of breath. Review of Systems Review of Systems: All systems reviewed & are unremarkable except as noted in HPI and below Exam Narrative: Exam Narrative: General: Well developed well nourished patient in NAD HEENT: normocephalic Neck: supple Neuro: Alert and oriented x4 CV:RRR Resp:CTA Abd: Soft, non distended. No pain to palpation. Positive bowel sounds Extremities: No swelling, erythema, or pain to palpation. Objective Data Vital Signs Vital Signs: Vital Signs - 24 hr 05/07/20 14:00 05/07/20 16:47 05/07/20 22:00 Temperature 99.6 F 99.4 F 98.7 F Pulse Rate 92 97 Respiratory Rate 20 16 Blood Pressure 143/71 H 146/73 H Pulse Oximetry 97 94 05/08/20 05:51 05/08/20 08:46 Temperature 98.6 F 98.7 F Pulse Rate 87 72 Respiratory Rate 18 18 Blood Pressure 148/81 H 138/76 Pulse Oximetry 96 98 Intake/Output Intake/Output: Intake & Output 05/05/20 05/06/20 05/07/20 05/08/20 23:59 23:59 23:59 23:59 Intake Total 3340 1360 1490 Output Total 900 900 Balance 3340 460 590 Meds/Results Medications: Active Medications Generic Name Dose Route Start Last Admin Trade Name Freq PRN Reason Stop Dose Admin Acetaminophen 650 mg 05/06/20 10:31 05/06/20 22:21
[2020-05-08] MEDS: LACTATED RINGERS 1,000 ML 30 ML IV CONT ×2 (14:10→17:17)
--- NOTE | 2020-05-08 14:11 | PC.NURSE ---
Patient to preop for procedure
--- NOTE | 2020-05-08 14:51 | SUR.PREOP ---
AND PATIENT MADE AWARE OF SURGERY TIME DELAY, PATIENT DENIES ANY NEEDS AT THIS TIME
--- NOTE | 2020-05-08 15:03 | WPDANESEPPF ---
Anes - Initial Pre Proc Eval Procedure: Operation Date: 05/08/20 15:00 Proposed Procedures p Laparoscopic Cholecystectomy - Terrell Lowe MD Date/Time: 05/08/20 15:03 Surgeon: Minda Negrete PA-C Pre Op Diagnosis: Sepsis, UTI, Acute cholecystitis Patient Data Age: 75 Gender: M Height: 5 ft 9 in Weight: 93 kg Last Vital Signs Temp 36.7 C 05/08/20 14:15 Pulse 99 05/08/20 14:15 Resp 18 05/08/20 14:15 BP 148/86 H 05/08/20 14:15 Pulse Ox 99 05/08/20 14:15 Allergies Allergy/AdvReac Type Severity Reaction Status Date / Time Sulfa (Sulfonamide Allergy Intermediate Nausea and Verified 05/06/20 09:00 Antibiotics) Vomiting codeine AdvReac Intermediate Nausea and Verified 05/06/20 09:00 Vomiting MEPERIDINE HCL Allergy Intermediate Nausea and Uncoded 04/18/20 06:27 Vomiting Home Medications Medication Instructions Recorded Confirmed Type amlodipine 5 mg PO DAILY 04/18/20 05/06/20 History aspirin [Aspir-81] 81 mg PO DAILY 04/18/20 05/06/20 History hydrochlorothiazide 25 mg PO DAILY 04/18/20 05/06/20 History losartan 100 mg PO DAILY 04/18/20 05/06/20 History metoprolol tartrate 25 mg PO BID 04/18/20 05/06/20 History simvastatin 10 mg PO DAILY 04/18/20 05/06/20 History Laboratory Tests 05/08/20 05/08/20 05/08/20 06:04 06:04 06:04 WBC 6.0 K/mm3 K/mm3 (4.5-10.0) RBC 4.19 M/mm3 L M/mm3 (4.6-6.20) Hgb 12.9 g/dL L g/dL (14.0-18.0) Hct 39.2 % L % (42.0-52.0) MCV 93.6 fl fl (80-100) MCH 30.8 pg pg (26-34) MCHC 32.9 g/dl g/dl (32-36) RDW 13.1 % % (11.5-14.5) Plt Count 183 k/mm3 k/mm3 (150-375) MPV 8.9 fl fl (7.4-10.4) Sodium 132 mmol/L L mmol/L (137-145) Potassium 3.7 mmol/L mmol/L (3.4-5.0) Chloride 101 mmol/L mmol/L (98-107) Carbon Dioxide 27 mmol/L mmol/L (22-30) Anion Gap 4 mmol/L L mmol/L (8-16) BUN 14 mg/dL mg/dL (9-20) Creatinine 0.80 mg/dL mg/dL (0.7-1.3) Estim Creat Clear Calc 81 ml/min ml/min Estimated GFR > 60 (59 - ) Glucose 116 mg/dL H mg/dL (75-110) Calcium 7.5 mg/dL L mg/dL (8.4-10.2) Magnesium 2.1 mg/dL mg/dL (1.6-2.3) Total Bilirubin 0.6 mg/dL mg/dL (0.2-1.3) AST 27 U/L U/L (17-59) ALT 25 U/L U/L (4-50) Alkaline Phosphatase 56 U/L U/L (38-126) Total Protein 6.0 g/dL L g/dL (6.3-8.2) Albumin 2.9 g/dL L g/dL (3.5-5.1) Blood Type Antibody Screen 05/08/20 11:10 WBC RBC Hgb Hct MCV MCH MCHC RDW Plt Count MPV Sodium Potassium Chloride Carbon Dioxide Anion Gap BUN Creatinine Estim Creat Clear Calc Estimated GFR Glucose Calcium Magnesium Total Bilirubin AST ALT Alkaline Phosphatase Total Protein Albumin Blood Type O Negative Antibody Screen Negative Patient hx anesthesia problems: post op nausea/vomiting and other (very slow to awaken) Family hx anesthesia problems: none PMFSH Past Medical History Medical History Diverticulosis History of deep vein thrombosis postoperative knee complications had been on anticoagulation for short period time. HTN (hypertension) Hyperlipidemia Obstructive sleep apnea resolved with surgery Surgical History Surgical History History of knee surgery 4x bilateral History of uvulopalatopharyngoplasty S/P tonsillectomy and adenoidectomy Family History Family History Father Acute myocardial infarction Mot
[2020-05-08] MEDS: BUPIVACAINE/EPINEPHRINE 0.5% 30 ML VIAL INFILTRATE (16:22)
[2020-05-08] MEDS: ONDANSETRON INJ 4 MG/2 ML VIAL IV PUSH (17:47)
--- NOTE | 2020-05-08 17:56 | PM.PROC ---
Procedure Note - Detailed Date of procedure: 05/08/20 Pre-op diagnosis: Acute on chronic cholecystitis with gallstones acute on chronic cholecystitis, cholelithiasis Post-op diagnosis: same Procedure performed: Laparoscopic cholecystectomy Description of procedure: the patient was taken to surgery and induced into general anesthesia. The abdomen was prepped and draped. Trocars were placed in the usual fashion using 0.5% Marcaine with epinephrine and applied Medical optical trocars. A 5 mm camera was used. Once the instruments were in position, the gallbladder was freed from a few adhesions and a laparoscopic aspirated or was used to decompress the gallbladder. The gallbladder itself had a very thick wall and I did not try to close the cholecystotomy. The gallbladder was then retracted anterosuperiorly. There were numerous adhesions to the gallbladder which were largely inflammatory. These were taken down with a combination of blunt and sharp dissection as well as cautery. As we reached the area of the infundibulum of the gallbladder, it was obvious that an additional 5 mm port would need to be placed to retract the duodenum and transverse colon posteriorly so that the cystic duct and cystic artery could be dissected with good visualization. A 5 mm port was then placed in the left mid abdomen. A laparoscopic Kittner was used to retract the duodenum posteriorly as described. There were many stones in the gallbladder and particularly infundibulum was packed with stones. Placing traction on the infundibulum, I then proceeded to dissect out the cystic duct and cystic artery. This was done with a combination of blunt and sharp dissection. Some cautery was also used. I dissected out the cystic duct and cystic artery. I also dissected the gallbladder off the liver at its lower 3rd. This was difficult as there was a lot of inflammation in the area and bleeding was more prevalent than usual. Nonetheless, critical view was achieved. I securely clipped and divided the cystic duct and cystic artery. From there we then began the difficult task of freeing the gallbladder from the liver. The severe inflammation, more of a chronic nature, had fused the planes between the liver and the gallbladder. Dissection between the liver and gallbladder was carried out. Unfortunately, with the tissue planes obscured, some entry into the liver and some entry into the gallbladder occurred. I had to remove some of the yellow smooth gallstones as they came out of the gallbladder and some that were in the gallbladder. When stones were extruded, I quickly removed them from the abdomen using a stone grasping forceps. Particularly near the fundus of the gallbladder the dissection was difficult and we ended up with some raw liver surface here. Finally the gallbladder was freed entirely from the liver. It was placed in an Endo-Catch bag and retrieved through the 10 11 epigastric trocar. I had to enlarge the epigastric trocar site bluntly to accommodate the gallbladder. Once the gallbladder was removed, I replaced the epigastric trocar and used a towel clip to occlude the site site so that we could reinsufflated. From there a very lengthy clean up process took place. We expose the gallbladder fossa and suction blood from the area. There was not any severe bleeding but oozing from the raw liver surface. Any additional stones that I encountered were quickly removed with the stone grasping forceps. Suction was used and all the old blood was evacuated. I then used cautery and achieved some degree of hemostasis from the liver surface. I also then instilled FloSeal over the liver surface and let it sit for several minutes. This was very effective in stopping the oozing of blood from the liver surface. We again exposed the subhepatic space and right upper quadrant. Approximately 2.5 L of saline were used to irrigate and suction the area to clean this area out thoroughly. I removed extra
[2020-05-08] MEDS: diphenhydrAMINE HCl INJ 50 MG/ML VIAL 12.5 MG IV PUSH (18:07)
--- NOTE | 2020-05-08 18:51 | SUR.PHASEI ---
Another RN from the floor called back and took report for Melani.
--- NOTE | 2020-05-08 19:04 | PC.NURSE ---
Patient returned from post op
[2020-05-08] MEDS: KCL 40 MEQ/0.9% SOD CHL 1,000 ML 100 ML IV CONT (20:05)
[2020-05-08] MEDS: ENOXAPARIN 30 MG/0.3 ML SYRINGE SUB-Q (20:24)
[2020-05-08] MEDS: METOPROLOL TARTRATE 25 MG TABLET PO (20:28)
[2020-05-08] MEDS: ACETAMINOPHEN 500 MG TABLET PO (20:29)
[2020-05-09] VITALS (7 sets, daily range): BP systolic 131–146; BP diastolic 69–76; PULSE 72–94; RESP 16–18; TEMP 36.4–36.7; O2SAT 95–98
[2020-05-09] MEDS: KCL 40 MEQ/0.9% SOD CHL 1,000 ML 100 ML IV CONT (05:51)
[2020-05-09 06:30] LABS: Hematocrit 40.1 % (42.0-52.0); Hemoglobin 13.1 g/dL (14.0-18.0); Mean Corpuscular HGB Conc 32.7 g/dl (32-36); Mean Corpuscular Hemoglobin 30.4 pg (26-34); Platelet Count Result 191 k/mm3 (150-375); Red Blood Count 4.31 M/mm3 (4.6-6.20); Red Cell Distribution Width 13.1 % (11.5-14.5); White Blood Count 8.7 K/mm3 (4.5-10.0)
[2020-05-09 06:42] LABS: Alanine Aminotransferase 53 U/L (4-50); Albumin Level 2.9 g/dL (3.5-5.1); Alkaline Phosphatase 54 U/L (38-126); Anion Gap 4 mmol/L (8-16); Aspartate Amino Transferase 67 U/L (17-59); Bilirubin,Total 0.4 mg/dL (0.2-1.3); Blood Urea Nitrogen 14 mg/dL (9-20); Calcium 7.7 mg/dL (8.4-10.2); Carbon Dioxide 28 mmol/L (22-30); Chloride 103 mmol/L (98-107); Estimated CRCL calculation 81 ml/min; Estimated Glomerular Filt Rate > 60; Glucose 83 mg/dL (75-110); Potassium 4.4 mmol/L (3.4-5.0); Sodium 135 mmol/L (137-145)
--- NOTE | 2020-05-09 07:49 | WPDANESPN ---
Anes - Prog Note Post-Op Date/Time: 05/09/20 07:49 Cardiovascular status: normal Respiratory status: normal Airway patency: baseline Mental status: baseline Post-Op hydration status: normal Vital Signs: Last Vital Signs Temp 97.8 F 05/09/20 04:00 Pulse 90 05/09/20 04:00 Resp 18 05/09/20 04:00 BP 139/73 05/09/20 04:00 Pulse Ox 97 05/09/20 04:00 I/O: Intake & Output 05/08/20 05/08/20 05/09/20 15:59 23:59 07:59 Intake Total 50 550 1900 Output Total 410 1115 Balance 50 140 785 Laboratory Tests 05/09/20 06:02 05/09/20 06:02 05/08/20 05/09/20 05/09/20 11:10 06:02 06:02 WBC 8.7 RBC 4.31 L Hgb 13.1 L Hct 40.1 L MCV 93.0 MCH 30.4 MCHC 32.7 RDW 13.1 Plt Count 191 MPV 9.0 Sodium 135 L Potassium 4.4 Chloride 103 Carbon Dioxide 28 Anion Gap 4 L BUN 14 Creatinine 0.80 Estim Creat Clear Calc 81 Estimated GFR > 60 Glucose 83 Calcium 7.7 L Total Bilirubin 0.4 Direct Bilirubin 0.0 AST 67 H ALT 53 H Alkaline Phosphatase 54 Total Protein 6.0 L Albumin 2.9 L Blood Type O Negative Antibody Screen Negative Microbiology 05/06/20 20:06 Blood Blood Culture - Preliminary 05/06/20 20:19 Blood Blood Culture - Preliminary 05/06/20 09:43 Urine Clean Catch Urine Culture - Final Escherichia Coli Post-procedural complaints: none Patient Feedback: Patient satisfied with anesthetic care.
[2020-05-09] MEDS: METOPROLOL TARTRATE 25 MG TABLET PO ×2 (08:07→21:51)
[2020-05-09] MEDS: ENOXAPARIN 30 MG/0.3 ML SYRINGE SUB-Q (08:07)
[2020-05-09] MEDS: LOSARTAN POTASSIUM 100 MG TABLET PO (08:07)
--- NOTE | 2020-05-09 08:33 | PM.PNGS ---
Progress Note: A&P Assessment and Plan (1) Cholelithiasis with acute on chronic cholecystitis with biliary obstruction: Qualifiers: Cholelithiasis location: gallbladder Qualified Code(s): K80.13 - Calculus of gallbladder with acute and chronic cholecystitis with obstruction Code(s): K80.13 - Calculus of gallbladder with acute and chronic cholecystitis with obstruction Status: Acute Assessment and Plan: doing well status post laparoscopic cholecystectomy yesterday. Continue IV antibiotics and increase activity, advance diet. If continues to improve and hospitalist service agrees, possibly home tomorrow. (2) Acute UTI: Code(s): N39.0 - Urinary tract infection, site not specified Status: Acute Assessment and Plan: E coli growing in urine is a somewhat resistant organism, it is resistant to Cipro and Levaquin. Also resistant to Augmentin. Probably home on Bactrim. (3) Hypokalemia: Code(s): E87.6 - Hypokalemia Status: Resolved Assessment and Plan: Potassium 4.4 today. Subjective Subjective Date/Time Seen: 05/09/20 08:33 Post Op day: 1 Patient reports: no new complaints ( some soreness in the right upper quadrant but no real pain or other problems), tolerating liquids well, no flatus and no bowel movement Exam GI: Inspection: incision ( all wounds healing well) and other ( SORIN output is mostly serous, no bile) GI Palp: Yes Soft to palpation, Yes Tenderness to palpation present (GI) ( mild appropriate tenderness), No Guarding due to palpation present (GI) and No Rebound tenderness present Auscultation: normal bowel sounds Objective Data Vital Signs Vital Signs: Vital Signs - 24 hr 05/08/20 08:46 05/08/20 14:15 05/08/20 17:17 Temperature 37.1 C 36.7 C 36.6 C Pulse Rate 72 99 84 Respiratory Rate 18 18 16 Blood Pressure 138/76 148/86 H 138/77 Pulse Oximetry 98 99 98 05/08/20 17:30 05/08/20 17:45 05/08/20 17:50 Temperature Pulse Rate 72 72 67 Respiratory Rate 17 19 14 Blood Pressure 158/74 H 149/77 H 149/77 H Pulse Oximetry 97 91 95 05/08/20 18:00 05/08/20 18:15 05/08/20 18:30 Temperature Pulse Rate 69 68 71 Respiratory Rate 18 19 18 Blood Pressure 154/95 H 139/77 146/70 H Pulse Oximetry 95 96 96 05/08/20 18:45 05/08/20 19:05 05/08/20 19:20 Temperature 35.9 C L 36.1 C L Pulse Rate 76 77 82 Respiratory Rate 19 16 16 Blood Pressure 135/71 149/71 H 150/71 H Pulse Oximetry 97 98 99 05/08/20 19:50 05/08/20 20:28 05/08/20 20:50 Temperature 36.1 C L 36.3 C L Pulse Rate 77 77 80 Respiratory Rate 16 18 Blood Pressure 145/75 H 138/77 Pulse Oximetry 98 98 05/09/20 00:00 05/09/20 04:00 05/09/20 08:07 Temperature 36.4 C L 36.6 C Pulse Rate 72 90 76 Respiratory Rate 16 18 Blood Pressure 131/70 139/73 Pulse Oximetry 97 97 Intake/Output Intake/Output: Intake & Output 05/06/20 05/07/20 05/08/20 05/09/20 23:59 23:59 23:59 23:59 Intake Total 3340 1360 2090 1900 Output Total 900 1310 1115 Balance 3340 460 780 785 Meds/Results Medications: Active Medications Generic Name Dose Route Start Last Admin Trade Name Freq PRN Reason Stop Dose Admin Acetaminophen 500 mg 05/08/20 18:59 05/08/20 20:29 Tylenol Tablet PO 500 mg Q6H PRN Administration Mild Pain (1-3) or Fever Hydrocodone Bitart/Acetaminophen 1 tab 05/08/20 18:59 [place] 5-325 Mg PO Q4H PRN Pain Rated 4-6 Hydrocodone Bitart/Acetaminophen 1 tab 05/08/20 18:59 [place] 7.5-325 Mg PO Q4H PRN Pain Rated 7-10 Diphenhydramine HCl 25 mg 05/08/20 18:59 Benadryl Inj IV PUSH Q6H PRN Itching Enoxaparin Sodium 30 mg 05/07/20 21:00 05/09/20 08:07 Lovenox SUB-Q 30 mg Q12HR REG Administration Piperacillin/Tazobactam/Dextrose 3.375 gm in 50 mls @ 100 mls/hr 05/06/20 18:00 09/02/20 06:21 Zosyn 3.375 Gm/D5w 50ml Pm IVPB Infused Q6HR REG Infusion Losartan Potassium 100 mg 09
--- NOTE | 2020-05-09 14:06 | PM.IMPN ---
Progress Note: A&P Assessment and Plan (1) Acute UTI: Code(s): N39.0 - Urinary tract infection, site not specified Status: Acute Assessment and Plan: -----Urine culture growing E coli which is sensitive to his Zosyn he is on currently for acute cholecystitis. Continue with that and okay do deescalate antibiotics when surgery is okay with this. (2) Acute cholecystitis: Code(s): K81.0 - Acute cholecystitis Status: Acute Assessment and Plan: -----this has been an ongoing issue. status post cholecystectomy postop day 1. Plan to try a regular diet tonight and possibly discharge tomorrow. (3) Sepsis: Qualifiers: Sepsis acute organ dysfunction status: without acute organ dysfunction Sepsis type: sepsis due to unspecified organism Qualified Code(s): A41.9 - Sepsis, unspecified organism Code(s): A41.9 - Sepsis, unspecified organism Status: Acute Assessment and Plan: ------Evident on arrival by fever, leukocytosis, tachycardia. Source appears to be urinary at this point but cholecystitis could be contributing although this is not causing him pain. Patient's last fever was 05/06/20. (4) Hyperlipidemia: Qualifiers: Hyperlipidemia type: unspecified Qualified Code(s): E78.5 - Hyperlipidemia, unspecified Code(s): E78.5 - Hyperlipidemia, unspecified Status: Chronic Assessment and Plan: -----Will continue statin therapy at discharge. (5) HTN (hypertension): Qualifiers: Hypertension type: essential hypertension Qualified Code(s): I10 - Essential (primary) hypertension Code(s): I10 - Essential (primary) hypertension Status: Chronic Assessment and Plan: -----Last blood pressure 136/69. I have continued his losartan and metoprolol. He has some concerns about his home medications and is going to be follow up with his pcp. He says he occasionally runs low. Will continue to hold norvasc and hctz until we see how his blood pressure runs. Subjective Date/time seen: 05/09/20 14:06 Interval history: Pt is a a 75-year-old male here for acute coli and UTI. patient was seen today with at bedside. He feels a little sore overall from his surgery but doing okay. He has tried clear liquids which she is tolerating but has not had a regular diet. He has been passing gas but has not had a bowel movement. He does not feel short of breath but he says it hurts to take a big breath because of his abdominal surgery. No chest pain Exam Narrative: Exam Narrative: General: Well developed well nourished patient in NAD HEENT: normocephalic Neck: supple Neuro: Alert and oriented x4 CV:RRR Resp:CTA, oxygen applied Abd: Soft, partially distended. SORIN drain intact with small amount of blood. Incision site clean and dry without excessive erythema or discharge. Expected amount of pain to palpation. Positive bowel sounds Extremities: No swelling, erythema, or pain to palpation. Objective Data Vital Signs Vital Signs: Vital Signs - 24 hr 05/08/20 14:15 05/08/20 17:17 05/08/20 17:30 Temperature 98.1 F 97.8 F Pulse Rate 99 84 72 Respiratory Rate 18 16 17 Blood Pressure 148/86 H 138/77 158/74 H Pulse Oximetry 99 98 97 05/08/20 17:45 05/08/20 17:50 05/08/20 18:00 Temperature Pulse Rate 72 67 69 Respiratory Rate 19 14 18 Blood Pressure 149/77 H 149/77 H 154/95 H Pulse Oximetry 91 95 95 05/08/20 18:15 05/08/20 18:30 05/08/20 18:45 Temperature Pulse Rate 68 71 76 Respiratory Rate 19 18 19 Blood Pressure 139/77 146/70 H 135/71 Pulse Oximetry 96 96 97 05/08/20 19:05 05/08/20 19:20 05/08/20 19:50 Temperature 96.7 F L 97.0 F L 97.0 F L Pulse Rate 77 82 77 Respiratory Rate 16 16 16 Blood Pressure 149/71 H 150/71 H 145/75 H Pulse Oximetry 98 99 98 05/08/20 20:28 05/08/20 20:50 05/09/20 00:00 Temperature 97.3 F L 97.5 F L Pulse Rate 77 80 72 Respiratory Rate 18 16
[2020-05-10 06:00] VITALS: BP 156/79; PULSE 88; RESP 16; TEMP 37.2; O2SAT 95
--- NOTE | 2020-05-10 06:22 | PM.PNGS ---
Progress Note: A&P Assessment and Plan (1) Cholelithiasis with acute on chronic cholecystitis with biliary obstruction: Qualifiers: Cholelithiasis location: gallbladder Qualified Code(s): K80.13 - Calculus of gallbladder with acute and chronic cholecystitis with obstruction Code(s): K80.13 - Calculus of gallbladder with acute and chronic cholecystitis with obstruction Status: Acute Assessment and Plan: okay to discharge home today. Patient does not need any oral analgesics. Can take either Tylenol or ibuprofen at home as [id number] analgesics. Will remove SORIN drain before discharge. Continue low-fat diet. He has a follow-up appointment to see me in 11 days, May 21. Home on 4 more days of antibiotics -will prescribe Bactrim (2) Acute UTI: Code(s): N39.0 - Urinary tract infection, site not specified Status: Acute Assessment and Plan: E coli sensitive to Bactrim. Subjective Subjective Date/Time Seen: 05/10/20 06:22 Post Op day: 2 Patient reports: no new complaints, feels better, pain is less (not having pain. NOt taking any analgesics.), tolerating liquids well (Minced and moist diet) and afebrile Exam Const: General: cooperative, comfortable, alert and awake Nutritional Appearance: overweight Orientation/consciousness: patient oriented x3 Limitations: no limitations GI: Inspection: non-distended and incision ( healing well, serosanguineous fluid in SORIN drain) GI Palp: Yes Soft to palpation and No Tenderness to palpation present (GI) Auscultation: normal bowel sounds Objective Data Vital Signs Vital Signs: Vital Signs - 24 hr 05/09/20 08:00 05/09/20 08:07 05/09/20 14:00 Temperature 36.7 C 36.7 C Pulse Rate 73 76 88 Respiratory Rate 16 16 Blood Pressure 136/69 137/70 Pulse Oximetry 98 96 05/09/20 21:51 05/09/20 22:00 Temperature 36.4 C L Pulse Rate 90 94 Respiratory Rate 16 Blood Pressure 146/76 H Pulse Oximetry 95 Intake/Output Intake/Output: Intake & Output 05/07/20 05/08/20 05/09/20 05/10/20 23:59 23:59 23:59 23:59 Intake Total 1360 2090 2840 50 Output Total 900 1310 2635 Balance 460 780 205 50 Meds/Results Medications: Active Medications Generic Name Dose Route Start Last Admin Trade Name Freq PRN Reason Stop Dose Admin Acetaminophen 500 mg 05/08/20 18:59 05/08/20 20:29 Tylenol Tablet PO 500 mg Q6H PRN Administration Mild Pain (1-3) or Fever Hydrocodone Bitart/Acetaminophen 1 tab 05/08/20 18:59 [place] 5-325 Mg PO Q4H PRN Pain Rated 4-6 Hydrocodone Bitart/Acetaminophen 1 tab 05/08/20 18:59 [place] 7.5-325 Mg PO Q4H PRN Pain Rated 7-10 Diphenhydramine HCl 25 mg 05/08/20 18:59 Benadryl Inj IV PUSH Q6H PRN Itching Enoxaparin Sodium 40 mg 05/10/20 09:00 Lovenox SUB-Q DAILY REG Piperacillin/Tazobactam/Dextrose 3.375 gm in 50 mls @ 100 mls/hr 05/06/20 18:00 05/10/20 06:04 Zosyn 3.375 Gm/D5w 50ml Pm IVPB 100 mls/hr Q6HR REG Administration Losartan Potassium 100 mg 05/08/20 09:05 05/09/20 08:07 Cozaar PO 100 mg DAILY REG Administration Metoprolol Tartrate 25 mg 05/08/20 21:00 05/09/20 21:51 Lopressor PO 25 mg Q12HR REG Administration Morphine Sulfate 2 mg 05/08/20 18:59 Morphine Sulfate Inj IV PUSH Q2H PRN Pain Rated 4-6 Morphine Sulfate 4 mg 05/08/20 18:59 Morphine Sulfate Inj IV PUSH Q2H PRN Pain Rated 7-10 Naloxone HCl 0.1 mg 05/08/20 18:59 Narcan IV PUSH Q2M PRN Opiate Reversal Ondansetron HCl 4 mg 05/08/20 18:59 Zofran Inj IV PUSH Q4H PRN Nausea And Vomiting Radiology Results: ITS Impressions Chest X-Ray 05/06/20 08:06 IMPRESSION: 1. Mild opacities at the left mid to lower and right lower lung zones which appears similar in location and configuration to earlier discoid atelectasis/scarring seen on prior CT. Abdomen/P
[2020-05-10 06:41] LABS: Hematocrit 40.4 % (42.0-52.0); Hemoglobin 13.1 g/dL (14.0-18.0)
[2020-05-10 06:58] LABS: Alanine Aminotransferase 64 U/L (4-50); Alkaline Phosphatase 59 U/L (38-126); Anion Gap 5 mmol/L (8-16); Aspartate Amino Transferase 64 U/L (17-59); Bilirubin,Total 0.5 mg/dL (0.2-1.3); Blood Urea Nitrogen 11 mg/dL (9-20); Calcium 7.9 mg/dL (8.4-10.2); Carbon Dioxide 28 mmol/L (22-30); Chloride 99 mmol/L (98-107); Estimated CRCL calculation 91 ml/min; Estimated Glomerular Filt Rate > 60; Glucose 86 mg/dL (75-110); Potassium 3.7 mmol/L (3.4-5.0); Sodium 132 mmol/L (137-145)
[2020-05-10] MEDS: LOSARTAN POTASSIUM 100 MG TABLET PO (08:53)
[2020-05-10] MEDS: METOPROLOL TARTRATE 25 MG TABLET PO (08:53)
--- NOTE | 2020-05-10 09:08 | PM.DS ---
DS: Admitting Diagnosis Admitting Diagnosis Admitting Diagnosis: Acute on chronic cholecystitis with gallstones DS: Discharge Diagnosis Discharge Diagnosis (1) Acute UTI: Code(s): N39.0 - Urinary tract infection, site not specified Status: Acute Assessment and Plan: -----Urine culture growing E coli which is sensitive to his Zosyn he was on currently for acute cholecystitis. Transitioned to bactrim at discharge. (2) Acute cholecystitis: Code(s): K81.0 - Acute cholecystitis Status: Acute Assessment and Plan: -----s/p cholecystectomy 05/08/20. Patient is doing well is going to follow-up with surgery (3) Sepsis: Qualifiers: Sepsis acute organ dysfunction status: without acute organ dysfunction Sepsis type: sepsis due to unspecified organism Qualified Code(s): A41.9 - Sepsis, unspecified organism Code(s): A41.9 - Sepsis, unspecified organism Status: Acute Assessment and Plan: ------resolved. Evident on arrival by fever, leukocytosis, tachycardia. Source appears to be urinary at this point but cholecystitis could be contributing although this is not causing him pain. Patient's last fever was 05/06/20. (4) Hyperlipidemia: Qualifiers: Hyperlipidemia type: unspecified Qualified Code(s): E78.5 - Hyperlipidemia, unspecified Code(s): E78.5 - Hyperlipidemia, unspecified Status: Chronic Assessment and Plan: -----Will continue statin therapy at discharge. (5) HTN (hypertension): Qualifiers: Hypertension type: essential hypertension Qualified Code(s): I10 - Essential (primary) hypertension Code(s): I10 - Essential (primary) hypertension Status: Chronic Assessment and Plan: -----Last blood pressure 156/79. Continue home meds at discharge. He has some concerns about his home medications and is going to be follow up with his pcp. He says he occasionally runs low. DS: Summary Hospital Course Reason for hospitalization: UTI, acute cholecystitis Hospital Course: Patient is a 75-year-old male who presented emergency room after having a recurrent fever with myalgias who was recently treated medically for acute cholecystitis. COVID negative. Temperature in the ER was 37.7, pulse 105, respiratory rate 16, blood pressure 116/67, pulse ox 96 on room air. Initial white blood cell count 15.9, hemoglobin 14.1, hematocrit 42.3, platelets 218. BMP within normal limits. Chest x-ray showed mild opacities in the left mid to lower right lung zones likely atelectasis/scarring when compared to previous imaging. CT of the abdomen pelvis showed acute cholecystitis with extensive diverticulosis and mild bladder wall thickening. Patient was admitted to the hospitalist service and started on Zosyn for his sepsis likely due to acute cholecystitis and UTI. The patient improved with this therapy and underwent a cholecystectomy on May 08 and did well. There were no complications. His urine culture grew e coli which was covered by the Zosyn and he was transition to Bactrim at discharge. It does look like he has a adverse reaction to sulfa which was nausea vomiting but thought to be okay with Bactrim at discharge. Overall, the patient had improvement. He was educated about the worrisome signs and symptoms to come back to emergency room for and he was discharged in stable condition. at bedside and agrees with plan. Status at Discharge Functional status at discharge: independent ambulation Overall status at discharge: patient is progressing back to baseline Time Spent with Patient Time attestation: Total time spent providing and/or coordinating discharge services:34 min Time spent: Greater than 30 minutes Exam Narrative: Exam Narrative: General: Well developed well nourished patient in NAD HEENT: normocephalic Neck: supple Neuro: Alert and oriented x4 CV:RRR Resp:CTA, oxygen applied Ab
--- NOTE | 2020-05-17 14:27 | PC.NURSE ---
Blood cx are negative.
== END 2020-05-10 11:40 | disposition home or self-care (01) | DRG 418 ==
LOC: ANHED 10:43 → ANH3MEDSUR 11:39
PROVIDERS: Nurse Practitioner; Physician Assistant; Surgery; Admitting Provider Family Medicine; Emergency Provider Emergency Medicine; PCP Physician Assistant; Visit Provider Family Medicine
PROC: 0FT44ZZ Resection of Gallbladder, Percutaneous Endoscopic Approach (ICD-10-PCS; CPT 47562; principal; 2020-05-08 15:00)
DX: K80.13 Calculus of gallbladder with acute and chronic cholecystitis with obstruction (principal); N39.0 Urinary tract infection, site not specified; J98.11 Atelectasis; E78.5 Hyperlipidemia, unspecified; I10 Essential (primary) hypertension; E87.6 Hypokalemia; G47.33 Obstructive sleep apnea (adult) (pediatric); K57.90 Diverticulosis of intestine, part unspecified, without perforation or abscess without bleeding; Z86.718 Personal history of other venous thrombosis and embolism; Z87.891 Personal history of nicotine dependence
CPT/HCPCS: 36415; 71046; 74177; 80048; 80053; 80076; 81001; 83605; 83690; 83735; 84443; 85014; 85018; 85025; 85027; 86140; 86850; 86900; 86901; 87040; 87077; 87086; 87088; 87186; 88304; 93005; 96361; 96365; 96366; 96367; 96372; 96375; 96376; 99285; A9270; C1713; G0378; J0696; J1100; J1200; J1650; J2370; J2405; J2543; J2704; J3010; J3480; J7030; J7120; Q9967

== ENCOUNTER 2020-06-01 09:23 | Outpatient (CLI) | payer MEDICARE, SELFPAY | END 2020-06-01 09:24 | disposition home or self-care (01) | PROVIDERS: PCP Physician Assistant; Referring Provider Urology; Visit Provider Physician Assistant | DX: R97.20 Elevated prostate specific antigen [PSA] (principal) | CPT/HCPCS: 36415; 84153 ==

== ENCOUNTER 2020-07-28 07:04 | Outpatient (NON) | payer MEDICARE, SELFPAY ==
[2020-07-28 23:36] LABS: SARS-CoV-2 RNA PCR Negative
== END 2020-07-28 07:05 ==
LOC: ANHCOVIDDT 07:04
PROVIDERS: PCP Physician Assistant; Visit Provider Physician Assistant
DX: R50.9 Fever, unspecified (principal); Z20.828 Contact with and (suspected) exposure to other viral communicable diseases
CPT/HCPCS: 87635; C9803; U0003

== ENCOUNTER 2022-04-18 07:58 | Outpatient (CLI) | payer MEDICARE, SELFPAY ==
--- NOTE | 2022-04-18 | ECG_ITS ---
Measurements Intervals [place] Rate: 74 P: 41 [place]: 206 QRS: 43 QRSD: 89 T: 34 QT: 390 QTc: 433 Interpretive Statements SINUS RHYTHM MINIMAL VOLTAGE CRITERIA FOR LVH, CONSIDER NORMAL VARIANT [MEETS CRITERIA IN ONE OF: R(aVL), S(V1), R(V5), R(V5/V6)+S(V1)] COMPARED TO ECG 05/08/2020 10:58:47 DIFFERENT LEAD POSITION V2 Electronically Signed On 04-18-2022 10:25:08 CDT by Prashant Moore M.D.
--- NOTE | ~2022-04-18 | CT_ITS ---
EXAMINATION: CT LE RT wo con DATE: 04/18/2022 08:41 INDICATION: Right knee osteoarthritis. Preoperative planning. TECHNIQUE: Computed tomography (CT) of the right knee was performed without intravenous contrast. Aut omated exposure control and iterative reconstruction technique were employed. The dose-length product was 1614.26 mGy-cm. COMPARISON: Right knee radiographs 07/23/2020 FINDINGS: Right hip demonstrate normal bone alignment. No fracture. There is moderate right hip osteo arthritis. Right knee demonstrates severe osteoarthritis of the lateral compartment and moderate oste oarthritis of the medial and patellofemoral compartments. There is a small knee joint effusion. Varic ose veins are noted. The talar dome is normal. IMPRESSION: 1. Severe right knee osteoarthritis. 2. Small right knee joint effusion. 3. Moderate right hip osteoarthritis. Reviewed, dictated and finalized at location A.
[2022-04-18 09:12] LABS: Albumin Level 3.6 g/dL (3.5-5.1); Estimated Glomerular Filt Rate > 60; Glucose 84 mg/dL (65-110)
== END 2022-04-18 07:59 | disposition home or self-care (01) ==
PROVIDERS: PCP Physician Assistant; Visit Provider Orthopaedic Surgery
DX: Z01.818 Encounter for other preprocedural examination (principal); M17.11 Unilateral primary osteoarthritis, right knee; M25.461 Effusion, right knee; M16.11 Unilateral primary osteoarthritis, right hip; I10 Essential (primary) hypertension; E87.6 Hypokalemia; E78.5 Hyperlipidemia, unspecified; G47.33 Obstructive sleep apnea (adult) (pediatric)
CPT/HCPCS: 36415; 73700; 82040; 82565; 82947; 93005

== ENCOUNTER 2022-06-10 08:32 | Emergency (ER) | payer MEDICARE, SELFPAY ==
--- NOTE | ~2022-06-10 | XR_ITS ---
EXAMINATION: XR chest 2V DATE: 06/10/2022 09:15 INDICATION: Stroke. TECHNIQUE: Frontal and lateral views of the chest were obtained. COMPARISON: Chest 2 views 05/06/2020, CT abdomen and pelvis 05/06/2020 FINDINGS: There are airspace opacities at left lung base. Calcified lung nodules are consistent with old granulomatous disease. No pleural effusion or pneumothorax. The heart size is normal. IMPRESSION: 1. Airspace opacities at left lung base, consistent with atelectasis/scarring versus pneumonia. Reviewed, dictated and finalized at location B. IMPRESSION: 1. Airspace opacities at left lung base, consistent with atelectasis/scarring v ersus pneumonia.
--- NOTE | ~2022-06-10 | CT_ITS ---
EXAMINATION: CTA brain carotid DATE: 06/10/2022 10:55 INDICATION: Transient ischemic attack. Tongue deviation. TECHNIQUE: Computed tomographic angiography (CTA) of the head was performed without and with 100 mL O mnipaque-350 intravenous contrast. CTA of the neck was performed with intravenous contrast. Automated exposure control and iterative reconstruction technique were employed. The dose-length product was 1 706.09 mGy-cm. Maximum intensity projection and volume rendered 3D-reconstructions were created by e technologist on a separate workstation. COMPARISON: Head CT 05/10/2013 FINDINGS: HEAD CTA: There are old infarcts in the right basal ganglia. There are prominent perivascular spaces in the temporal parietal white matter bilaterally. There are scattered areas of low attenuation in th e cerebral white matter. There is no intracranial hemorrhage, acute infarction, or abnormal intracran ial mass lesion. The ventricles are normal in size. The vertebral arteries are codominant. There is n o significant stenosis of the basilar artery or posterior cerebral arteries. There is no significant stenosis of the intracranial internal carotid arteries or anterior or middle cerebral arteries. Anter ior communicating artery is normal. Posterior communicating arteries are not identified. There is no aneurysm. NECK CTA: There is mild emphysema. There are no pathologically enlarged lymph nodes. There is plaque in the proximal internal carotid arteries. There is 0% stenosis of the proximal right internal caroti d artery relative to normal distal artery lumen diameter (NASCET criteria). There is 0% stenosis of t he proximal left internal carotid artery relative to normal distal artery lumen diameter. There is se oh cervical spondylosis. IMPRESSION: 1. 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 2. Mild nonspecific cerebral white matter disease, which likely represents chronic small vessel ische beau disease. 3. No aneurysm or significant intracranial internal stenosis. 4. 0% stenosis of the proximal internal carotid arteries relative to normal distal artery lumen diame ters (NASCET criteria). Reviewed, dictated and finalized at location B. IMPRESSION: 1. 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 2. Mild nonspecific cerebral white matter disease, which likely represents dental appliance mechanic abbey small vessel ischemic disease. 3. No aneurysm or significant intracranial internal stenosis. 4. 0% stenosis of the proximal internal carotid arteries relative to normal dis jackelyn artery lumen diameters (NASCET criteria).
[2022-06-10 08:42] VITALS: BP 157/87; PULSE 80; RESP 16; TEMP 36.9; O2SAT 99
[2022-06-10 09:11] LABS: Basophils Absolute Auto 0.1 K/mm3 (0.0-0.1); Basophils Percent Auto 1.5 % (0.2-1.2); Eosinophils Absolute Auto 0.4 K/mm3 (0-0.3); Eosinophils Percent Auto 5.8 % (0-4.4); Hematocrit 42.8 % (42.0-52.0); Hemoglobin 13.9 g/dL (14.0-18.0); Immature Granulocyte Absolute 0.02 K/mm3 (0.00-0.031); Immature Granulocyte Percent A 0.3 % (0-0.5); Lymphocytes Absolute Auto 1.16 K/mm3 (0.9-3.2); Lymphocytes Percent Auto 19.1 % (18.3-44.2); Mean Corpuscular HGB Conc 32.5 g/dl (32-36); Mean Corpuscular Hemoglobin 31.7 pg (26-34); Mean Corpuscular Volume 97.5 fl (80-100); Mean Platelet Volume 8.7 fl (7.4-10.4); Monocytes Absolute Auto 0.6 K/mm3 (0.1-0.6); Monocytes Percent Auto 10.1 % (2.6-8.5); Neutrophils Absolute Auto 3.8 K/mm3 (1.3-6.7); Neutrophils Percent Auto 63.2 % (45.5-73.1); Platelet Count Result 213 k/mm3 (150-375); Red Blood Count 4.39 M/mm3 (4.6-6.20); Red Cell Distribution Width 13.6 % (11.5-14.5); White Blood Count 6.1 K/mm3 (4.5-10.0)
[2022-06-10 09:22] LABS: INR 1.1; Partial Thromboplastin Time 26.3 SECONDS (22.3-36.8); Prothrombin Time 13.8 Seconds (11.1-14.7)
[2022-06-10 09:25] LABS: Anion Gap 12 mmol/L (8-16); Blood Urea Nitrogen 18 mg/dL (9-20); Calcium 8.8 mg/dL (8.4-10.2); Carbon Dioxide 27 mmol/L (22-30); Chloride 103 mmol/L (98-107); Estimated CRCL calculation 69 ml/min; Estimated Glomerular Filt Rate > 60; Glucose 105 mg/dL (65-110); Potassium 3.5 mmol/L (3.4-5.0); Sodium 142 mmol/L (137-145)
[2022-06-10 09:36] LABS: Troponin I < 0.012 ng/mL (0.000-0.034)
[2022-06-10 10:04] VITALS: BP 137/66; PULSE 70; RESP 20; O2SAT 96
--- NOTE | 2022-06-10 10:26 | ED.NEUROSD ---
HPI - Neuro Symptoms/Deficit General Chief Complaint: Neuro Symptoms/Deficit Stated Complaint: Stroke? Time Seen by Provider: 06/10/22 08:40 History of Present Illness HPI Narrative: Patient is a 77-year-old male who presents ER with concerns for possible stroke. Patient reports his did evaluation on him after he had a coughing episode and she was concerned his tongue was deviating to the left. He had difficulty appreciating this. Patient recently had an episode in [facility] where he was admitted for 3 days for neurologic evaluation. There is evidence of old stroke on his imaging. He was started on dual antiplatelet therapy as he had previously been taking baby aspirin so he is not taking clopidogrel with his baby aspirin. He had a normal EEG performed. He is attempting to find a elevated work platform operator and a neurologist in the area. At that time he had been having facial droop and confusion. Symptoms occurred while he was on a plane. Related Data Home Medications Medication Instructions Recorded Confirmed amlodipine 5 mg tablet 5 mg PO DAILY 04/18/20 04/09/22 aspirin 81 mg tablet,delayed 81 mg PO DAILY 04/18/20 04/09/22 release (Aspir-) losartan 100 mg tablet 100 mg PO DAILY 04/18/20 04/09/22 metoprolol tartrate 25 mg tablet 25 mg PO BID 04/18/20 04/09/22 simvastatin 10 mg tablet 10 mg PO DAILY 04/18/20 04/09/22 Allergies Allergy/AdvReac Type Severity Reaction Status Date / Time codeine AdvReac Intermediate Nausea and Verified 04/09/22 08:52 Vomiting meperidine AdvReac Intermediate Nausea and Verified 04/09/22 08:52 Vomiting Sulfa (Sulfonamide AdvReac Intermediate Nausea and Verified 04/09/22 08:52 Antibiotics) Vomiting Review of Systems Review of Systems: All systems reviewed & are unremarkable except as noted in HPI and below Constitutional: Constitutional: Denies chills, Denies fatigue and Denies fever(s) ENT: Denies nasal congestion and Denies sore throat Cardiovascular: Cardiovascular: Denies chest pain, Denies rapid heart rate and Denies radiating jaw, neck or arm pain Respiratory: Respiratory: Denies cough and Denies dyspnea Gastrointestinal: Gastrointestinal: Denies abdominal pain, Denies nausea and Denies vomiting Neurologic: Denies syncope, Denies headache(s), Denies numbness and Denies weakness [facility] Past Medical History Medical History (Updated 06/10/22 @ 11:57 by Ramos Amato MD) Diverticulosis History of deep vein thrombosis postoperative knee complications had been on anticoagulation for short period time. HTN (hypertension) Hyperlipidemia Obstructive sleep apnea resolved with surgery Surgical History Surgical History History of knee surgery 4x bilateral History of uvulopalatopharyngoplasty Hx laparoscopic cholecystectomy 05/08/2020 S/P tonsillectomy and adenoidectomy Family History Family History Father Acute myocardial infarction Mother Breast cancer Diverticulitis Social History Social History Social History: the patient lives with his Tricia who is the durable power senior trial attorney for healthcare. The patient quit smoking almost 40 years ago. He still continues to work in sales. He desires to be a full code. He has 2 children. Occasionally has an alcoholic drink. Does not use any marijuana or illicit drugs. Smoking packs per day: 2 Smoking cigarettes per day: 40.0 Years smoked: 20 Smoking pack-years: 40.00 Smoking status: Former smoker Tobacco type: cigarettes Alcohol intake: current Drinks per week: 2 Substance use: current Additional occupation/education comments: sales Gender identity (if verbalized by the patient): Male Spiritual care concerns: No Exam Narrative: GENERAL: Well-appearing, well-nourished, and in no acute distress. HEAD:
[2022-06-10 11:55] VITALS: BP 142/73; PULSE 66; RESP 13; O2SAT 99
== END 2022-06-10 12:06 | disposition home or self-care (01) ==
PROVIDERS: Emergency Provider Emergency Medicine; PCP Physician Assistant
DX: R68.89 Other general symptoms and signs (principal); I10 Essential (primary) hypertension; E78.5 Hyperlipidemia, unspecified; G47.33 Obstructive sleep apnea (adult) (pediatric); Z86.718 Personal history of other venous thrombosis and embolism; Z79.82 Long term (current) use of aspirin; Z87.891 Personal history of nicotine dependence
CPT/HCPCS: 36415; 70496; 70498; 71046; 80048; 84484; 85025; 85610; 85730; 99284; Q9967

== ENCOUNTER 2022-09-17 00:32 | Day surgery (SDC) | payer MEDICARE, SELFPAY ==
[2022-09-17] VITALS (11 sets, daily range): BP systolic 125–161; BP diastolic 62–87; PULSE 67–75; RESP 12–27; TEMP 36.7; O2SAT 89–100; BMI 27.8
--- NOTE | 2022-09-17 10:11 | WPDMODSED ---
Moderate Sedation Note-Pt Data Patient Data Diagnosis: Stroke Present Complaint: History of stroke Procedure to be performed/Plan: 1. Moderate sedation 2. Multiplanar transesophageal echocardiography with color flow and pulse wave Doppler 3. Agitated saline study Allergies Allergy/AdvReac Type Severity Reaction Status Date / Time codeine AdvReac Intermediate Nausea and Verified 09/17/22 09:22 Vomiting meperidine AdvReac Intermediate Nausea and Verified 09/17/22 09:22 Vomiting Sulfa (Sulfonamide AdvReac Intermediate Nausea and Verified 09/17/22 09:22 Antibiotics) Vomiting Home Medications Medication Instructions Recorded Confirmed Type amlodipine 5 mg tablet 5 mg PO DAILY 04/18/20 09/17/22 History aspirin 81 mg tablet,delayed 81 mg PO DAILY 04/18/20 09/17/22 History release (Aspir-) losartan 100 mg tablet 100 mg PO DAILY 04/18/20 09/17/22 History metoprolol tartrate 25 mg tablet 25 mg PO BID 04/18/20 09/17/22 History simvastatin 10 mg tablet 20 mg PO DAILY 04/18/20 09/17/22 History clopidogrel 75 mg tablet 75 mg PO DAILY 08/21/22 09/17/22 History Current Medications: Active Medications Sodium Chloride (Normal Saline Iv) 500 mls @ 500 mls/hr IV CONT .Q1H ONE Stop: 09/18/22 09:59 Sedation/Anesthesia: No previous sedation/anesthesia problems (including family history). [facility] Past Medical History Medical History Diverticulosis History of deep vein thrombosis postoperative knee complications had been on anticoagulation for short period time. HTN (hypertension) Hyperlipidemia Obstructive sleep apnea resolved with surgery Surgical History Surgical History History of knee surgery 4x bilateral History of uvulopalatopharyngoplasty Hx laparoscopic cholecystectomy 05/08/2020 S/P tonsillectomy and adenoidectomy Family History Family History Father Acute myocardial infarction Mother Breast cancer Diverticulitis Social History Social History Social History: the patient lives with his Tricia who is the durable power staff attorney for healthcare. The patient quit smoking almost 40 years ago. He still continues to work in sales. He desires to be a full code. He has 2 children. Occasionally has an alcoholic drink. Does not use any marijuana or illicit drugs. Smoking packs per day: 2 Smoking cigarettes per day: 40.0 Years smoked: 20 Smoking pack-years: 40.00 Smoking status: Never smoker Tobacco type: cigarettes Alcohol intake: current Drinks per week: 1 Substance use: never Substance use type: does not use Lack of Transportation: No Lack of Food: Never True Current Housing: I Have Housing Concerned About Future Housing: No Difficulty Paying Gas/Electric Bills: No Difficulty Paying for Meds: No Education: Bachelor's Degree Difficulty w/ Childcare or Family Care: No Living arrangements: with family Additional occupation/education comments: sales Gender identity (if verbalized by the patient): Male Spiritual care concerns: No Mod Sed Physical Exam Physical Exam Pre Procedural Exam: Normal: Appearance, Eyes, Ears, Nose, Neck, Throat, Airway, Lungs, Heart Size, Heart Rate, Heart Rhythm, Neuro Exam, Extremities and Skin Hours since solid foods: 12 Hours since liquid intake: 12 Mallampati Classification: class II Internal Medicine - PN: Obj Da Vital Signs Vital Signs: Vital Signs - 24 hr 09/17/22 09:00 Temperature 36.7 C Pulse Rate 73 Respiratory Rate 13 Blood Pressure 145/78 H Pulse Oximetry 100 Oxygen Delivery Room Air Meds/Results Medications: Active Medications Generic Name Dose Route Start Last Admin Trade Name Freq PRN Reason Stop Dose Admin Sodium Chloride 500 mls @ 500 mls/hr 09/18/22
--- NOTE | 2022-09-17 10:36 | WPDTEECHO ---
[facility] TransEsophageal Echocardiogram Date of procedure: 09/17/22 Procedure Type: 1. Moderate sedation 2. Multiplanar transesophageal echocardiography with color flow and pulse wave Doppler 3. Agitated saline study Diagnosis: Stroke Indications: Stroke Image Quality: Good Findings: After discussing the risks, benefits and alternatives of the procedure patient agreeable via verbal and written informed consent. Risks discussed include esophageal rupture perforation, need for surgery, bleeding, pain, infection, sore throat, adverse reaction to anesthesia. After establishing continues monitoring manager, pulse oxygenation serial blood pressure assessments time-out was taken the procedure was started. Procedure start time: 10:13 a.m. Procedure stop time 10:33 a.m. Complications: None Blood loss: None Medications given: A total of 4 mg of Versed and 75 mcg of fentanyl given in divided dosages as well as Hurricaine spray to the hypopharynx x2 for topical anesthetic. Medications were administered patient was monitored by Li Ovalles RN Findings: Normal left ventricular size and function with ejection fraction estimated around 60%. No obvious wall motion abnormalities. Normal right ventricular size and function. Normal right atrial size. Left atrium is also normal in size. Left atrial appendage is normal without mass or thrombus with velocities of 75 centimeters/second. Mitral valve is normal with [id number] mitral regurgitation. Tricuspid valve is normal with mild tricuspid regurgitation the pulmonic valve is normal without pulmonic insufficiency. Aortic valve is normal, trileaflet and without aortic insufficiency. The aortic root is normal in size measuring 3.4 cm. There is mild atherosclerosis seen in the ascending aorta and aortic arch. No pericardial effusion. The atrial septum is intact. It is then hypermobile but without color flow or agitated saline evidence of shunting. Conclusions: 1. Normal left ventricular size and function ejection fraction 60% 2. Ccgc-[id number] mitral regurgitation 3. Mild tricuspid regurgitation 4. Normal left atrial appendage 5. Thin and hypermobile atrial septum but without color flow or agitated saline evidence of shunting. 6. Mild aortic atherosclerotic plaquing 7. Moderate sedation
[2022-09-17] MEDS: ONDANSETRON INJ 4 MG/2 ML VIAL 2 MG IV PUSH (11:47)
--- NOTE | 2022-09-17 12:44 | SUR.PHASEII ---
pt c/o of nausea at approx 1140. cool rag applied fareed crackers and water given to help settle stomach. pt continues to c/o of nausea dr mejía called order for zofran 2mg iv received and given. pt had 1x emesis at approx 1205 of about 20 ml yellow emesis. pt reported felt much better after. observed pt until 1220 then pt felt comfortable with leaving. vss. daughter with pt and comfortable with taking over care of father. emesis bags given for ride home. questions encouraged and answered. v/u
== END 2022-09-17 12:24 | disposition home or self-care (01) ==
PROVIDERS: PCP Physician Assistant; Visit Provider Internal Medicine Cardiovascular Disease
PROC: (CPT 93312; principal; 2022-09-17 10:00)
DX: I34.0 Nonrheumatic mitral (valve) insufficiency (principal); I36.1 Nonrheumatic tricuspid (valve) insufficiency; I70.0 Atherosclerosis of aorta; I65.23 Occlusion and stenosis of bilateral carotid arteries; I10 Essential (primary) hypertension; E78.5 Hyperlipidemia, unspecified; G47.33 Obstructive sleep apnea (adult) (pediatric); Z86.73 Personal history of transient ischemic attack (TIA), and cerebral infarction without residual deficits; Z87.891 Personal history of nicotine dependence; Z79.82 Long term (current) use of aspirin; Z79.02 Long term (current) use of antithrombotics/antiplatelets
CPT/HCPCS: 93312; 93320; 93325; J2250; J2405; J3010; J7040

== ENCOUNTER 2024-06-12 05:32 | Observation (INO) | payer MEDICARE, SELFPAY ==
[2024-06-12] VITALS (27 sets, daily range): BP systolic 108–153; BP diastolic 45–70; PULSE 81–128; RESP 14–29; TEMP 37–38.3; O2SAT 90–98; BMI 30.9
--- NOTE | ~2024-06-12 | XR_ITS ---
EXAMINATION: XR abdomen/kub 1V DATE: 06/13/2024 10:53 INDICATION: Abdominal distention. Nausea and vomiting. TECHNIQUE: A supine view of the abdomen on 2 radiographs was obtained. COMPARISON: CT abdomen and pelvis 05/06/2020 FINDINGS: There are no dilated loops of bowel. There is a small volume of stool in the colon. Surgica l clips in the right upper quadrant are likely from cholecystectomy. IMPRESSION: 1. Normal bowel gas pattern. Reviewed, dictated and finalized at location A.
--- NOTE | ~2024-06-12 | XR_ITS ---
EXAMINATION: XR chest 1V portable DATE: 06/12/2024 06:27 INDICATION: Shortness of breath and cough TECHNIQUE: frontal view of the chest was obtained. COMPARISON: Chest radiograph dated 06/10/2022 FINDINGS: Patchy airspace opacities in the left perihilar region and lower lung zone. No pleural effusion or pn eumothorax. Heart size is normal. Mild thoracic dextrocurvature with mild spondylosis. Severe bilater al glenohumeral osteoarthritis. IMPRESSION: 1. Persistent patchy airspace opacities in the perihilar region and lower lung zone suspicious for pn eumonia with differential including less likely atelectasis or asymmetric pulmonary edema. Reviewed, dictated and finalized at location A. IMPRESSION: 1. Persistent patchy airspace opacities in the perihilar region and lower lung zone suspicious for pneumonia with differential including less likely atelectas is or asymmetric pulmonary edema.
--- NOTE | 2024-06-12 06:02 | ECG_ITS ---
Test Date: 2024-06-12 06:07:07 Measurements Intervals [place] Rate: 112 P: 27 ME: 205 QRS: 2 QRSD: 140 T: 142 QT: 355 QTc: 486 Interpretive Statements SINUS TACHYCARDIA WITH FREQUENT SUPRAVENTRICULAR PREMATURE COMPLEXES INTRAVENTRICULAR CONDUCTION DELAY [130+ ms QRS DURATION] LEFT VENTRICULAR HYPERTROPHY AND ST-T CHANGE [VOLTAGE CRITERIA PLUS ST/T ABNORMALITY] No previous ECG available for comparison Electronically Signed On 06-12-2024 11:37:30 CDT by Spencer Chester M.D.
[2024-06-12 06:06] LABS: Basophils Percent Auto 0.4 % (0.2-1.2); Eosinophils Percent Auto 0.2 % (0-4.4); Hematocrit 46.6 % (42.0-52.0); Hemoglobin 15.3 g/dL (14.0-18.0); Immature Granulocyte Absolute 0.04 K/mm3 (0.00-0.031); Immature Granulocyte Percent A 0.4 % (0-0.5); Lymphocytes Absolute Auto 0.34 K/mm3 (0.9-3.2); Lymphocytes Percent Auto 3.1 % (18.3-44.2); Mean Corpuscular HGB Conc 32.8 g/dl (32-36); Mean Corpuscular Hemoglobin 31.8 pg (26-34); Mean Corpuscular Volume 96.9 fl (80-100); Mean Platelet Volume 8.6 fl (7.4-10.4); Monocytes Absolute Auto 0.7 K/mm3 (0.1-0.6); Monocytes Percent Auto 5.9 % (2.6-8.5); Neutrophils Absolute Auto 9.9 K/mm3 (1.3-6.7); Platelet Count Result 176 k/mm3 (150-375); Red Blood Count 4.81 M/mm3 (4.6-6.20); Red Cell Distribution Width 13.2 % (11.5-14.5)
[2024-06-12 06:16] LABS: Alanine Aminotransferase 25 U/L (6-50); Albumin Level 3.9 g/dL (3.5-5.1); Alkaline Phosphatase 68 U/L (38-126); Anion Gap 10 mmol/L (4-12); Aspartate Amino Transferase 36 U/L (17-59); Bilirubin,Total 1.3 mg/dL (0.2-1.3); Blood Urea Nitrogen 24 mg/dL (9-20); Calcium 8.7 mg/dL (8.4-10.2); Carbon Dioxide 29 mmol/L (22-30); Chloride 96 mmol/L (98-107); Estimated CRCL calculation 58 ml/min; Estimated Glomerular Filt Rate > 60; Glucose 159 mg/dL (65-110); Lipase 57 U/L (23-300); Potassium 3.1 mmol/L (3.4-5.0); Sodium 135 mmol/L (137-145)
--- NOTE | 2024-06-12 06:27 | ED.GENADULT ---
HPI - General Adult General Chief complaint: Nausea/Vomiting/Diarrhea <Avelino Matthews MD - Last Filed: 06/12/24 06:28> Stated complaint: chills, fever 101, vomiting, diarrhea <Avelino Matthews MD - Last Filed: 06/12/24 06:28> Time Seen by Provider: 06/12/24 06:05 <Avelino Matthews MD - Last Filed: 06/12/24 06:28> History of Present Illness HPI narrative: Patient is a 79-year-old gentleman who presents emergency department with chief complaint of chills body aches fevers and vomiting patient reports that he has history of UTI and did start himself on Augmentin the patient's tested positive for COVID yesterday but he is been negative on a home test for COVID. <Avelino Matthews MD - Last Filed: 06/12/24 06:28> Patient is a 79-year-old gentleman who presents to the emergency department with chief complaint of chills body aches fevers and vomiting patient reports that he has history of UTI and did start himself on Augmentin the patient's tested positive for COVID yesterday but he is been negative on a home test for COVID. <Herson Bacon MD - Last Filed: 06/12/24 16:58> Related Data Home medications: Home Medications Medication Instructions Recorded Confirmed amlodipine 5 mg tablet 5 mg PO DAILY 04/18/20 06/12/24 aspirin 81 mg tablet,delayed 81 mg PO EVERY OTHER DAY 04/18/20 06/12/24 release (Aspir-) losartan 100 mg tablet 100 mg PO DAILY 04/18/20 06/12/24 simvastatin 10 mg tablet 20 mg PO DAILY 04/18/20 06/12/24 clopidogrel 75 mg tablet 75 mg PO DAILY 08/21/22 06/12/24 metoprolol tartrate 25 mg tablet 50 mg PO BID 02/05/23 06/12/24 citalopram 10 mg tablet 10 mg PO DAILY 06/12/24 06/12/24 indapamide 1.25 mg tablet 1.25 mg PO DAILY 06/12/24 06/12/24 <Avelino Matthews MD - Last Filed: 06/12/24 06:28> Allergies/adverse reactions: Allergies Allergy/AdvReac Type Severity Reaction Status Date / Time codeine AdvReac Intermediate Nausea and Verified 06/12/24 10:07 Vomiting meperidine AdvReac Intermediate Nausea and Verified 06/12/24 10:07 Vomiting Sulfa (Sulfonamide AdvReac Intermediate Nausea and Verified 06/12/24 10:07 Antibiotics) Vomiting fentanyl AdvReac Unknown Nausea and Verified 06/12/24 10:07 Vomiting <Avelino Matthews MD - Last Filed: 06/12/24 06:28> Review of Systems Review of Systems: A 10 system review of systems was completed on the patient and is negative except for what is stated in the HPI. Nursing and ancillary documentation was reviewed. <Avelino Matthews MD - Last Filed: 06/12/24 06:28> [facility] Past Medical History Medical History: Medical History (Updated 06/12/24 @ 10:33 by Herson Bacon MD) Diverticulosis History of deep vein thrombosis postoperative knee complications had been on anticoagulation for short period time. HTN (hypertension) Hyperlipidemia Obstructive sleep apnea resolved with surgery <Avelino Matthews MD - Last Filed: 06/12/24 06:28> Surgical History Surgical History: Surgical History History of knee surgery 4x bilateral History of uvulopalatopharyngoplasty Hx laparoscopic cholecystectomy 05/08/2020 S/P tonsillectomy and adenoidectomy <Avelino Matthews MD - Last Filed: 06/12/24 06:28> Family History Family History: Family History Father Acute myocardial infarction Mother Breast cancer Diverticulitis <Avelino Matthews MD - Last Filed: 06/12/24 06:28> Social History Social History: Social History Social History: the patient lives with his Tricia who is the durable power insurance defense attorney for healthcare. The patient quit smoking almost 40 years ago. He still continues to work in sales. He desires to be a full c
[2024-06-12 06:42] LABS: Influenza A QL RT-PCR Negative (Negative); Influenza B QL RT-PCR Negative (Negative); RSV RNA, RT-PCR Negative (Negative); SARS-CoV-2 RNA PCR Negative (Negative)
[2024-06-12 07:49] LABS: Troponin I < 0.012 ng/mL (0.000-0.034)
[2024-06-12 08:04] LABS: Procalcitonin 0.4 ng/mL
[2024-06-12 08:07] LABS: NT Pro B Type Natriuretic Pept 1800 pg/mL (19.9-100)
--- NOTE | 2024-06-12 08:07 | ECG_ITS ---
Test Date: 2024-06-12 08:12:09 Measurements Intervals [place] Rate: 102 P: 43 SD: 200 QRS: -7 QRSD: 146 T: 84 QT: 378 QTc: 493 Interpretive Statements SINUS TACHYCARDIA WITH FREQUENT SUPRAVENTRICULAR PREMATURE COMPLEXES LEFT BUNDLE BRANCH BLOCK [120+ ms QRS DURATION, 80+ ms Q/S IN V1/V2, 85+ ms R IN I/aVL/V5/V6] Compared to ECG 06/12/2024 06:07:07 no change compared to prior echo Electronically Signed On 06-12-2024 11:39:44 CDT by Spencer Chester M.D.
[2024-06-12 08:19] LABS: Lactic Acid Reflex 1.1 mmol/L (0.7-2.0)
[2024-06-12 08:29] LABS: Add Urine Microscopic? YES; Appearance Urine Cloudy (Clear); Bacteria Urine None Seen /hpf; Bilirubin Urine 1+ (Negative); Blood Urine 2+ (Negative); Color Urine Dark Yellow (Yellow); Glucose Urine UA Negative (Negative); Ketones Urine Trace mg/dL (Negative); Leukocyte Esterase Ur 2+ LEU/UL (Negative); Nitrate Urine Negative (Negative); Non Pathogenic Casts 0-2; Protein Urine 2+ mg/dL (Negative); Specific Grav Ur 1.027 (1.001-1.035); Squamous Epithelial Cell Urine None Seen /hpf (Few); WBC Urine >100 /hpf (0-3)
--- NOTE | 2024-06-12 09:30 | PC.NURSE ---
Patient placed on 2L O2 due to oxygen sat dropping to 88% while sleeping. states patient has sleep apnea and is supposed to wear a c-pap at home at nightime, but is not compliant
[2024-06-12] MEDS: AZITHROMYCIN 500 MG/NS 250 ML 500 MG/250 ML BAG 250 MG IVPB (10:41)
[2024-06-12] MEDS: SODIUM CHLORIDE 0.9% IV 1,000 ML 999 ML IV CONT (10:41)
--- NOTE | 2024-06-12 11:19 | ECG_ITS ---
Test Date: 2024-06-12 11:19:01 Measurements Intervals [place] Rate: 95 P: -19 MS: 172 QRS: -5 QRSD: 149 T: 75 QT: 401 QTc: 505 Interpretive Statements SINUS RHYTHM LEFT BUNDLE BRANCH BLOCK Compared to ECG 06/12/2024 08:12:09 PACs ARE NO LONGER PRESENT Electronically Signed On 06-12-2024 13:27:13 CDT by Mira Baum M.D.
--- NOTE | 2024-06-12 11:48 | PC.NURSE ---
This patient, Baltazar Cox, was admitted to Medical Room 240-01. Patient/family oriented to hospital policies and general routines including ID bracelet, bed and alarms, visiting hours, pain management, procedures, bathroom and other care routines, personal items, smoking policy, room service/diet, and visiting hours. Information on how to activate the Rapid Response Team has been discussed. Patient/Family are encouraged to report perceived risks to care and to ask questions if they do not understand what they are told or what they should do.
--- NOTE | 2024-06-12 12:04 | PM.IMHP ---
H&P: HPI History of Present Illness Date/Time: 06/12/24 12:04 Chief Complaint: Nausea vomiting diarrhea Narrative: Patient is a 79-year-old gentleman who presents emergency department with chief complaint of chills body aches fevers and vomiting Urinary symptoms. patient reports that he has history of UTI and did start himself on Augmentin . he also reports mild cough. On ED evaluation he was tachycardic on arrival blood pressure was adequate. he was Afebrile. Laboratory evaluation showed WBC of 11 hemoglobin of 18 hypokalemic at 3.1 renal function with creatinine of 0.9 BUN of 24. Troponin is less than 0.012nd set 0.030 urinalysis was positive for UTI with you she is more than 100. SARs COVID influenza and RSV swab negative. Chest x-ray showed persistent patchy airspace opacities in the perihilar region and lower lung zone suspicious for pneumonia. Patient has been started on ceftriaxone azithromycin. Patient was admitted for further treatment Review of Systems Review of Systems: - CONSTITUTIONAL: Denies weight loss, fever and reports chills. - HEENT: Denies changes in vision and hearing - RESPIRATORY: Denies SOB and reports some cough. - CV: Denies palpitations and CP. - GI: Denies abdominal pain, report nausea, vomiting , no diarrhea. - : reports dysuria and urinary frequency. - MSK: Denies myalgia and joint pain. - SKIN: Denies rash and pruritus. - NEUROLOGICAL: Denies headache and syncope. - PSYCHIATRIC: Denies recent changes in mood. Denies anxiety and depression. [facility] Past Medical History Medical History (Updated 06/12/24 @ 10:33 by Herson Bacon MD) Diverticulosis History of deep vein thrombosis postoperative knee complications had been on anticoagulation for short period time. HTN (hypertension) Hyperlipidemia Obstructive sleep apnea resolved with surgery Surgical History Surgical History History of knee surgery 4x bilateral History of uvulopalatopharyngoplasty Hx laparoscopic cholecystectomy 05/08/2020 S/P tonsillectomy and adenoidectomy Family History Family History Father Acute myocardial infarction Mother Breast cancer Diverticulitis Social History Social History Social History: the patient lives with his Tricia who is the durable power collections attorney for healthcare. The patient quit smoking almost 40 years ago. He still continues to work in sales. He desires to be a full code. He has 2 children. Occasionally has an alcoholic drink. Does not use any marijuana or illicit drugs. Smoking packs per day: 2 Smoking cigarettes per day: 40.0 Years smoked: 20 Smoking pack-years: 40.00 Smoking status: Former smoker Tobacco type: cigarettes Alcohol intake: current Drinks per week: 5 Substance use: never Substance use type: does not use Do You Feel Safe in your Home?: Yes Lack of Transportation: No Lack of Food: Never True Current Housing: I Have Housing Concerned About Future Housing: No Difficulty Paying Gas/Electric Bills: No Difficulty Paying for Meds: No Currently Unemployed: No Education: Master's Degree or Higher Difficulty w/ Childcare or Family Care: No Living arrangements: with family Occupation/Education: occupation Additional occupation/education comments: sales Gender identity (if verbalized by the patient): Male Spiritual care concerns: No Meds Home Medications and Allergies Home Medications Medication Instructions Recorded Confirmed Type amlodipine 5 mg tablet 5 mg PO DAILY 04/18/20 06/12/24 History aspirin 81 mg tablet,delayed 81 mg PO EVERY OTHER DAY 04/18/20 06/12/24 History release (Aspir-) losartan 100 mg tablet 100 mg PO DAILY 04/18/20 06/12/24 History simvastatin 10 mg tablet 20 mg PO DAILY 08
[2024-06-12] MEDS: CITALOPRAM HYDROBROMIDE 10 MG TABLET PO (13:53)
[2024-06-12] MEDS: CLOPIDOGREL BISULFATE 75 MG TABLET PO (13:54)
[2024-06-12] MEDS: INDAPAMIDE 1.25 MG TABLET PO (13:54)
[2024-06-12] MEDS: SIMVASTATIN 20 MG TABLET PO (13:54)
[2024-06-12] MEDS: LOSARTAN POTASSIUM 100 MG TABLET PO (13:54)
[2024-06-12] MEDS: POTASSIUM CHLORIDE 20 MEQ ER TABLET 40 MEQ PO (13:55)
[2024-06-12] MEDS: ACETAMINOPHEN 325 MG TABLET 650 MG PO (14:58)
[2024-06-12] MEDS: METOPROLOL TARTRATE 50 MG TAB PO (17:43)
[2024-06-12] MEDS: LORATADINE 10 MG TABLET PO (21:08)
[2024-06-13] VITALS (13 sets, daily range): BP systolic 119–156; BP diastolic 45–73; PULSE 76–109; RESP 14–16; TEMP 36.9–37.7; O2SAT 95–100
[2024-06-13 05:58] LABS: Basophils Percent Auto 0.3 % (0.2-1.2); Hematocrit 46.8 % (42.0-52.0); Hemoglobin 15.2 g/dL (14.0-18.0); Immature Granulocyte Absolute 0.09 K/mm3 (0.00-0.031); Immature Granulocyte Percent A 1.3 % (0-0.5); Lymphocytes Absolute Auto 0.44 K/mm3 (0.9-3.2); Lymphocytes Percent Auto 6.1 % (18.3-44.2); Mean Corpuscular HGB Conc 32.5 g/dl (32-36); Mean Corpuscular Volume 98.5 fl (80-100); Mean Platelet Volume 8.7 fl (7.4-10.4); Monocytes Absolute Auto 0.3 K/mm3 (0.1-0.6); Monocytes Percent Auto 4.4 % (2.6-8.5); Neutrophils Absolute Auto 6.3 K/mm3 (1.3-6.7); Neutrophils Percent Auto 87.9 % (45.5-73.1); Platelet Count Result 151 k/mm3 (150-375); Red Blood Count 4.75 M/mm3 (4.6-6.20); Red Cell Distribution Width 13.3 % (11.5-14.5); White Blood Count 7.2 K/mm3 (4.5-10.0)
[2024-06-13 06:07] LABS: Alanine Aminotransferase 51 U/L (6-50); Albumin Level 3.6 g/dL (3.5-5.1); Alkaline Phosphatase 61 U/L (38-126); Anion Gap 8 mmol/L (4-12); Aspartate Amino Transferase 77 U/L (17-59); Bilirubin,Total 1.1 mg/dL (0.2-1.3); Blood Urea Nitrogen 24 mg/dL (9-20); Calcium 7.9 mg/dL (8.4-10.2); Carbon Dioxide 29 mmol/L (22-30); Chloride 97 mmol/L (98-107); Estimated CRCL calculation 74 ml/min; Estimated Glomerular Filt Rate > 60; Glucose 120 mg/dL (65-110); Magnesium 2.4 mg/dL (1.6-2.3); Potassium 3.1 mmol/L (3.4-5.0); Sodium 134 mmol/L (137-145)
[2024-06-13] MEDS: ASPIRIN 81 MG ENTERIC TABLET PO (08:40)
[2024-06-13] MEDS: amLODIPine BESYLATE 5 MG TABLET PO (08:40)
[2024-06-13] MEDS: CLOPIDOGREL BISULFATE 75 MG TABLET PO (08:41)
[2024-06-13] MEDS: CITALOPRAM HYDROBROMIDE 10 MG TABLET PO (08:41)
[2024-06-13] MEDS: METOPROLOL TARTRATE 50 MG TAB PO ×2 (08:41→17:22)
[2024-06-13] MEDS: SIMVASTATIN 20 MG TABLET PO (08:41)
[2024-06-13] MEDS: INDAPAMIDE 1.25 MG TABLET PO (08:41)
[2024-06-13] MEDS: LOSARTAN POTASSIUM 100 MG TABLET PO (08:41)
[2024-06-13] MEDS: AZITHROMYCIN 500 MG/NS 250 ML 500 MG/250 ML BAG 250 MG IVPB (09:27)
[2024-06-13] MEDS: POTASSIUM CHLORIDE 20 MEQ ER TABLET 40 MEQ PO (09:27)
--- NOTE | 2024-06-13 12:11 | PM.IMPN ---
Progress Note: A&P Assessment and Plan (1) Acute UTI: Code(s): N39.0 - Urinary tract infection, site not specified Status: Acute (2) Pneumonia: Code(s): J18.9 - Pneumonia, unspecified organism Status: Acute (3) Hyperlipidemia: Qualifiers: Hyperlipidemia type: unspecified Qualified Code(s): E78.5 - Hyperlipidemia, unspecified Code(s): E78.5 - Hyperlipidemia, unspecified Status: Chronic (4) HTN (hypertension): Qualifiers: Hypertension type: essential hypertension Qualified Code(s): I10 - Essential (primary) hypertension Code(s): I10 - Essential (primary) hypertension Status: Chronic Plan Patient is a 79-year-old gentleman who presents emergency department with chief complaint of chills body aches fevers and vomiting Urinary symptoms. patient reports that he has history of UTI and did start himself on Augmentin . he also reports mild cough. On ED evaluation he was tachycardic on arrival blood pressure was adequate. he was Afebrile. Laboratory evaluation showed WBC of 11 hemoglobin of 18 hypokalemic at 3.1 renal function with creatinine of 0.9 BUN of 24. Troponin is less than 0.012nd set 0.030 urinalysis was positive for UTI with you she is more than 100. SARs COVID influenza and RSV swab negative. Chest x-ray showed persistent patchy airspace opacities in the perihilar region and lower lung zone suspicious for pneumonia. Patient has been started on ceftriaxone azithromycin. Urine antigens pending. Follow urine culture and blood culture that has been ordered. his oxygen saturation was dipping down while sleeping and has been placed on 2 L oxygen Via nasal cannula. He reports no shortness of breath. Mild hypoxia likely due to apnea. Continue oxygen supplementation and taper as tolerated. Nausea/vomiting/abdominal distension: Check x-ray suspect ileus having bowel movement. X-ray came back with normal bowel gas pattern. Will try Vistaril for anxiety related. May try benzodiazepines if needed DVT prophylaxis Lovenox Code status full code PT OT to see Subjective Date/time seen: 06/13/24 12:11 Interval history: Overnight he felt nauseous and episode of vomiting. mentions she does that when he gets anxious. They try Benadryl or antihistamines for the symptoms and sometimes benzodiazepines like Xanax. He does report he had bowel movement at night. Review of Systems Review of Systems: All systems reviewed & are unremarkable except as noted in HPI and below Exam Narrative: GENERAL: Well-appearing, well-nourished, and in no acute distress. HEAD: Normocephalic, atraumatic. EYES: PERRLA and EOMI. ENT: Nares clear, no rhinorrhea or epistaxis. Mucous membranes moist. NECK: Supple. CHEST: Clear to auscultation. No respiratory distress. HEART: Regular rate and rhythm. No murmur heard. Normal peripheral pulses. ABDOMEN: Soft, nontender, mildly distended, normal active bowel sounds. EXTREMITIES: Normal range of motion. No edema. SKIN: Warm, dry, no rash. NEURO: No focal deficits. Alert and oriented x3. PSYCH: Anxious looking Objective Data Vital Signs Vital Signs: Vital Signs - 24 hr 06/12/24 12:41 06/12/24 13:28 06/12/24 13:29 Temperature 98.9 F Pulse Rate 92 96 99 Respiratory Rate 14 Blood Pressure 113/64 127/67 135/61 Pulse Oximetry 97 Oxygen Delivery Oxygen Flow Rate 06/12/24 12:35 06/12/24 14:03 06/12/24 14:00 Temperature 99.1 F Pulse Rate 105 H Respiratory Rate 14 Blood Pressure Pulse Oximetry 97 Oxygen Delivery Nasal Cannula Oxygen Flow Rate 2 06/12/24 14:58 06/12/24 14:59 06/12/24 15:58 Temperature 100.9 F H 100.9 F H 98.6 F Pulse Rate 97 Respiratory Rate 21 H Blood Pressure Pulse Oximetry Oxygen Delivery Oxygen Flow Rate 06/12/24 16:00 06/12/24 17:29 06/12/24 17:43 Temperature Pulse Rate 114 H 96 95 Respiratory Rate Blood Pressure 125/61
[2024-06-14] VITALS (11 sets, daily range): BP systolic 119–132; BP diastolic 61–74; PULSE 75–94; RESP 16–20; TEMP 36.4–37.3; O2SAT 96–99
[2024-06-14 06:00] LABS: Basophils Percent Auto 0.6 % (0.2-1.2); Hematocrit 46.2 % (42.0-52.0); Hemoglobin 14.9 g/dL (14.0-18.0); Immature Granulocyte Absolute 0.07 K/mm3 (0.00-0.031); Immature Platelet Fraction Pct 3.3 % (0.9-11.2); Lymphocytes Absolute Auto 0.64 K/mm3 (0.9-3.2); Lymphocytes Percent Auto 9.6 % (18.3-44.2); Mean Corpuscular HGB Conc 32.3 g/dl (32-36); Mean Corpuscular Hemoglobin 31.4 pg (26-34); Mean Corpuscular Volume 97.3 fl (80-100); Monocytes Absolute Auto 0.5 K/mm3 (0.1-0.6); Monocytes Percent Auto 7.9 % (2.6-8.5); Neutrophils Absolute Auto 5.4 K/mm3 (1.3-6.7); Neutrophils Percent Auto 80.9 % (45.5-73.1); Platelet Count Result 136 k/mm3 (150-375); Red Blood Count 4.75 M/mm3 (4.6-6.20); Red Cell Distribution Width 13.2 % (11.5-14.5); White Blood Count 6.7 K/mm3 (4.5-10.0)
[2024-06-14 06:04] LABS: Alanine Aminotransferase 69 U/L (6-50); Albumin Level 3.4 g/dL (3.5-5.1); Alkaline Phosphatase 68 U/L (38-126); Anion Gap 3 mmol/L (4-12); Aspartate Amino Transferase 98 U/L (17-59); Bilirubin,Total 0.9 mg/dL (0.2-1.3); Blood Urea Nitrogen 21 mg/dL (9-20); Calcium 8.1 mg/dL (8.4-10.2); Carbon Dioxide 34 mmol/L (22-30); Chloride 97 mmol/L (98-107); Estimated CRCL calculation 74 ml/min; Estimated Glomerular Filt Rate > 60; Glucose 118 mg/dL (65-110); Magnesium 2.3 mg/dL (1.6-2.3); Potassium 3.6 mmol/L (3.4-5.0); Sodium 134 mmol/L (137-145)
[2024-06-14] MEDS: CITALOPRAM HYDROBROMIDE 10 MG TABLET PO (08:21)
[2024-06-14] MEDS: INDAPAMIDE 1.25 MG TABLET PO (08:21)
[2024-06-14] MEDS: SIMVASTATIN 20 MG TABLET PO (08:21)
[2024-06-14] MEDS: CLOPIDOGREL BISULFATE 75 MG TABLET PO (08:21)
[2024-06-14] MEDS: METOPROLOL TARTRATE 50 MG TAB PO ×2 (08:21→17:11)
[2024-06-14] MEDS: amLODIPine BESYLATE 5 MG TABLET PO (08:21)
[2024-06-14] MEDS: LOSARTAN POTASSIUM 100 MG TABLET PO (08:22)
[2024-06-14] MEDS: AZITHROMYCIN 500 MG/NS 250 ML 500 MG/250 ML BAG 250 MG IVPB (08:22)
--- NOTE | 2024-06-14 10:06 | PCPTNOTE ---
Attempted PT evaluation, pt refused. Pt's reports pt is ambulating independently. RN aware and Hospitalist aware.
[2024-06-14] MEDS: LORATADINE 10 MG TABLET PO (10:26)
[2024-06-14] MEDS: valACYclovir HCL 500 MG TABLET 1000 MG PO ×2 (10:37→21:43)
--- NOTE | 2024-06-14 15:15 | PM.IMPN ---
Progress Note: A&P Assessment and Plan (1) Acute UTI: Code(s): N39.0 - Urinary tract infection, site not specified Status: Acute (2) Pneumonia: Code(s): J18.9 - Pneumonia, unspecified organism Status: Acute (3) Hyperlipidemia: Qualifiers: Hyperlipidemia type: unspecified Qualified Code(s): E78.5 - Hyperlipidemia, unspecified Code(s): E78.5 - Hyperlipidemia, unspecified Status: Chronic (4) HTN (hypertension): Qualifiers: Hypertension type: essential hypertension Qualified Code(s): I10 - Essential (primary) hypertension Code(s): I10 - Essential (primary) hypertension Status: Chronic Plan Patient is a 79-year-old gentleman who presents emergency department with chief complaint of chills body aches fevers and vomiting Urinary symptoms. patient reports that he has history of UTI and did start himself on Augmentin . he also reports mild cough. On ED evaluation he was tachycardic on arrival blood pressure was adequate. he was Afebrile. Laboratory evaluation showed WBC of 11 hemoglobin of 18 hypokalemic at 3.1 renal function with creatinine of 0.9 BUN of 24. Troponin is less than 0.012nd set 0.030 urinalysis was positive for UTI with you she is more than 100. SARs COVID influenza and RSV swab negative. Chest x-ray showed persistent patchy airspace opacities in the perihilar region and lower lung zone suspicious for pneumonia. Patient has been started on ceftriaxone azithromycin. Urine antigens pending. Follow urine culture and blood culture that has been ordered. his oxygen saturation was dipping down while sleeping and has been placed on 2 L oxygen Via nasal cannula. He reports no shortness of breath. Mild hypoxia likely due to apnea. Continue oxygen supplementation and taper as tolerated. Nausea/vomiting/abdominal distension: Check x-ray suspect ileus having bowel movement. X-ray came back with normal bowel gas pattern. Will try Vistaril for anxiety related. May try benzodiazepines if needed. Herpes labialis will start Valtrex DVT prophylaxis Lovenox Code status full code PT OT to see Subjective Date/time seen: 06/14/24 15:15 Interval history: no overnight events, feeling better. still on oxygen. Review of Systems Review of Systems: All systems reviewed & are unremarkable except as noted in HPI and below Exam Narrative: GENERAL: Well-appearing, well-nourished, and in no acute distress. HEAD: Normocephalic, atraumatic. EYES: PERRLA and EOMI. ENT: Nares clear, no rhinorrhea or epistaxis. Mucous membranes moist. NECK: Supple. CHEST: Clear to auscultation. No respiratory distress. HEART: Regular rate and rhythm. No murmur heard. Normal peripheral pulses. ABDOMEN: Soft, nontender, mildly distended, normal active bowel sounds. EXTREMITIES: Normal range of motion. No edema. SKIN: Warm, dry, no rash. NEURO: No focal deficits. Alert and oriented x3. PSYCH: normal mood Objective Data Vital Signs Vital Signs: Vital Signs - 24 hr 06/13/24 16:14 06/13/24 16:00 06/13/24 17:22 Temperature Pulse Rate 81 92 Respiratory Rate Blood Pressure Pulse Oximetry Oxygen Delivery Room Air Oxygen Flow Rate Fraction of Inspired Oxygen 06/13/24 19:28 06/13/24 20:00 06/13/24 20:00 Temperature 99.9 F H Pulse Rate 84 84 Respiratory Rate 16 Blood Pressure 119/45 L Pulse Oximetry 99 99 Oxygen Delivery Nasal Cannula Oxygen Flow Rate 2 Fraction of Inspired Oxygen 06/14/24 00:00 06/14/24 04:00 06/14/24 04:30 Temperature 98.4 F Pulse Rate 85 75 82 Respiratory Rate 16 Blood Pressure 127/73 Pulse Oximetry 99 Oxygen Delivery Oxygen Flow Rate Fraction of Inspired Oxygen 06/14/24 08:00 06/14/24 08:21 06/14/24 08:00 Temperature Pulse Rate 82 Respiratory Rate Blood Pressure Pulse Oximetry 96 96 Oxygen Delivery Nasal Cannula Nasal Cannula Oxygen Flow Rate 1.5 1.5
[2024-06-14] MEDS: hydrOXYzine pamoate 25 MG CAPSULE PO (18:06)
[2024-06-15] VITALS (9 sets, daily range): BP systolic 121; BP diastolic 51; PULSE 83–93; RESP 16; TEMP 36.9; O2SAT 92–97
[2024-06-15 08:33] LABS: Alanine Aminotransferase 79 U/L (6-50); Albumin Level 3.2 g/dL (3.5-5.1); Alkaline Phosphatase 62 U/L (38-126); Anion Gap 3 mmol/L (4-12); Aspartate Amino Transferase 97 U/L (17-59); Blood Urea Nitrogen 21 mg/dL (9-20); Calcium 7.6 mg/dL (8.4-10.2); Carbon Dioxide 29 mmol/L (22-30); Chloride 97 mmol/L (98-107); Estimated CRCL calculation 84 ml/min; Estimated Glomerular Filt Rate > 60; Glucose 96 mg/dL (65-110); Potassium 3.3 mmol/L (3.4-5.0); Sodium 129 mmol/L (137-145)
[2024-06-15 08:47] LABS: Basophils Percent Auto 0.4 % (0.2-1.2); Eosinophils Percent Auto 0.2 % (0-4.4); Hematocrit 42.1 % (42.0-52.0); Hemoglobin 14.2 g/dL (14.0-18.0); Immature Granulocyte Absolute 0.07 K/mm3 (0.00-0.031); Immature Granulocyte Percent A 1.2 % (0-0.5); Immature Platelet Fraction Pct 3.5 % (0.9-11.2); Lymphocytes Absolute Auto 0.75 K/mm3 (0.9-3.2); Lymphocytes Percent Auto 13.2 % (18.3-44.2); Mean Corpuscular HGB Conc 33.7 g/dl (32-36); Mean Corpuscular Hemoglobin 32.3 pg (26-34); Mean Corpuscular Volume 95.7 fl (80-100); Mean Platelet Volume 9.5 fl (7.4-10.4); Monocytes Absolute Auto 0.6 K/mm3 (0.1-0.6); Monocytes Percent Auto 10.6 % (2.6-8.5); Neutrophils Absolute Auto 4.2 K/mm3 (1.3-6.7); Neutrophils Percent Auto 74.4 % (45.5-73.1); Platelet Count Result 119 k/mm3 (150-375); Red Cell Distribution Width 13.3 % (11.5-14.5); White Blood Count 5.7 K/mm3 (4.5-10.0)
[2024-06-15] MEDS: INDAPAMIDE 1.25 MG TABLET PO (09:06)
[2024-06-15] MEDS: LORATADINE 10 MG TABLET PO (09:07)
[2024-06-15] MEDS: METOPROLOL TARTRATE 50 MG TAB PO (09:07)
[2024-06-15] MEDS: ASPIRIN 81 MG ENTERIC TABLET PO (09:07)
[2024-06-15] MEDS: CLOPIDOGREL BISULFATE 75 MG TABLET PO (09:07)
[2024-06-15] MEDS: SIMVASTATIN 20 MG TABLET PO (09:07)
[2024-06-15] MEDS: CITALOPRAM HYDROBROMIDE 10 MG TABLET PO (09:07)
[2024-06-15] MEDS: amLODIPine BESYLATE 5 MG TABLET PO (09:08)
[2024-06-15] MEDS: LOSARTAN POTASSIUM 100 MG TABLET PO (09:08)
[2024-06-15] MEDS: AZITHROMYCIN 500 MG/NS 250 ML 500 MG/250 ML BAG 250 MG IVPB (10:06)
--- NOTE | 2024-06-15 11:30 | PCRCNOTE ---
Home O2 eval complete. Patient does not require Home O2 at this time. RN notified.
--- NOTE | 2024-06-15 11:38 | PM.DS ---
DS: Admitting Diagnosis Discharge Date 06/15/24 Admitting Diagnosis Fever, chills, n/v, diarrhea. DS: Discharge Diagnosis Discharge Diagnosis (1) Acute UTI: Code(s): N39.0 - Urinary tract infection, site not specified Status: Acute (2) Pneumonia: Code(s): J18.9 - Pneumonia, unspecified organism Status: Acute (3) Hyperlipidemia: Qualifiers: Hyperlipidemia type: unspecified Qualified Code(s): E78.5 - Hyperlipidemia, unspecified Code(s): E78.5 - Hyperlipidemia, unspecified Status: Chronic (4) HTN (hypertension): Qualifiers: Hypertension type: essential hypertension Qualified Code(s): I10 - Essential (primary) hypertension Code(s): I10 - Essential (primary) hypertension Status: Chronic (5) Elevated troponin: Code(s): R79.89 - Other specified abnormal findings of blood chemistry Status: Acute DS: Summary Hospital Course Reason for hospitalization: 79yo male with HTn and HLD here for chills, body aches, fevers, nausea, vomiting and diarrhea. Also with urinary symptoms. He has history of UTI and did start himself on Augmentin prior to admission. Please see H&P for details Hospital Course: ED evaluation showed that he was tachycardic but afebrile and blood pressure was adequate. Laboratory evaluation showed WBC of 11K, hemoglobin of 18, hypokalemic at 3.1. PCT 0.4. Renal function with creatinine of 0.9 and BUN of 24. Troponin was less than 0.012 and climbed to 0.04. BNP 1800. EKG showing sinus tachycardia, PACs, IVCD and LVH with strain pattern; no change on repeat. UA was consistent with UTI. COVID, influenza and RSV PCR swab negative. Chest x-ray showed persistent patchy airspace opacities in the perihilar region and lower lung zone suspicious for pneumonia (compared to 06/10/22 CXR so could be chronic findings). Patient was started on ceftriaxone and azithromycin. Urine antigens pending. Urine culture was negative but was on abx prior to admission. BCx NGTD. His oxygen saturation was dipping down while sleeping and was placed on 2 L oxygen via nasal cannula. He reported no shortness of breath. Mild hypoxia likely due to apnea. No apnea link ordered. He was able to be tapered off oxygen. Home O2 evaluation showing he does not need oxygen at home. He was noted to have abdominal distension but KUB showing normal bowel gas pattern. He was up ambulating in the halls. WBC normal. Platelet count did drop to 119K. He was not on Lovenox so felt related to the infection (viral?). AST and ALT were mildly elevated and AST was trending down at discharge. No cough, SOB or chest pain. Elevated Troponin felt related tachycardia and his current illness. He overall did well and was able to be discharged home on 06/15/24. Status at Discharge Cognitive/behavioral status at discharge: stable Time Spent with Patient Time attestation: Total time spent providing and/or coordinating discharge services: 35 minutes Time spent: Greater than 30 minutes Exam Narrative: AF 98.5 121/51 89 16 95% ra Gen - NARD Chest - Rt base crackles o/w clear. nml RR CV - RRR S1/S2. Tele showing BBB and PVCs Abd - Soft, NT/ND, Positive BS Ext - No pedal edema. negative Hom[place] Neuro - Alert and appropriate. Psych - Nml mood and affect Skin - Warm and dry DS: Data Data Completed and Pending Labs on day of discharge: Labs from last 24 hours 06/15/24 08:10 WBC 5.7 RBC 4.40 L Hgb 14.2 Hct 42.1 MCV 95.7 MCH 32.3 MCHC 33.7 RDW 13.3 Plt Count 119 L MPV 9.5 Immature Gran % (Auto) 1.2 H Neut % (Auto) 74.4 H Lymph % (Auto) 13.2 L [place] % (Auto) 10.6 H Eos % (Auto) 0.2 Baso % (Auto) 0.4 Lymph # (Auto) 0.75 L [place] # (Auto) 0.6 Eos # (Auto) 0.0 Baso # (Auto) 0.0 Abs Immat Gran (auto) 0.07 H Absolute Neuts (auto) 4.2 Absolute Nucleated RBC 0.000 Nucleated RBC % 0.0 % Immature Plt Fraction 3.5 Sodium 129 L Potassium 3
[2024-06-16 18:09] LABS: Pneumococcal Antigen Urine NOT DETECTED
--- NOTE | 2024-06-17 08:42 | PC.NURSE ---
Urine pneumococcal is not detected.
[2024-06-18 18:28] LABS: Mycoplasma IgM Antibody Titer 94 U/mL
[2024-06-18 22:09] LABS: Legionella pneumophila Ag Ur NOT DETECTED
--- NOTE | 2024-06-20 10:03 | PC.NURSE ---
urine legionella is not detected. Mycoplasm is WNL at 94. Dr. oDminic roque.
== END 2024-06-15 13:10 | disposition home or self-care (01) ==
LOC: ANHED 10:33 → ANH2MED 11:22
PROVIDERS: Emergency Medicine; Admitting Provider Internal Medicine; Emergency Provider Emergency Medicine; PCP Physician Assistant; Visit Provider Internal Medicine
DX: J18.9 Pneumonia, unspecified organism (principal); N39.0 Urinary tract infection, site not specified; R11.2 Nausea with vomiting, unspecified; R19.7 Diarrhea, unspecified; R09.02 Hypoxemia; E78.5 Hyperlipidemia, unspecified; I10 Essential (primary) hypertension; R79.89 Other specified abnormal findings of blood chemistry; K57.90 Diverticulosis of intestine, part unspecified, without perforation or abscess without bleeding; Z20.822 Contact with and (suspected) exposure to COVID-19; Z79.82 Long term (current) use of aspirin; Z79.899 Other long term (current) drug therapy; Z86.718 Personal history of other venous thrombosis and embolism; Z87.891 Personal history of nicotine dependence; Z79.02 Long term (current) use of antithrombotics/antiplatelets
CPT/HCPCS: 36415; 71045; 74018; 80053; 81001; 83605; 83690; 83735; 83880; 84145; 84484; 85025; 85055; 86738; 87040; 87086; 87449; 87637; 87899; 93005; 94618; 96365; 96366; 96367; 97165; 97535; 99285; A9270; G0378; J0456; J0696; J7030